=== PATIENT | female | born 1940 | race Caucasian/White ===

== ENCOUNTER 2017-11-24 09:19 | Emergency (ER) | payer MEDICARE, SELFPAY ==
[2017-11-24 10:17] VITALS: BP 118/68; PULSE 77; RESP 16; TEMP 36.8; O2SAT 96; BMI 16.2
--- NOTE | 2017-11-24 10:53 | XR_ITS ---
EXAM: XR cervical spine 5V HISTORY: ITS.REASON: neck pain ORDERING PHYSICIAN: Parris Cancino PATIENT AGE: 77 years COMPARISON: None FINDINGS: There is multilevel cervical spondylosis. Degenerative disc disease C2-C3, C3 C4 C4 C5 C5 C6 and C6-C7 worse at C5-C6 and C6-C7. There is 4 mm anterolisthesis of C3 and 2 to 3 mm anterolisthesis of C4. Facet arthropathy is also noted from C3 to C7. Left-sided foraminal narrowing is present at multiple levels worse at C3-C4 C4-C5 and C6-C7. Right-sided foraminal narrowing also noted at multiple levels worse at C3-C4 C4-C5. No obvious fracture. There is mild head tilt toward the right. IMPRESSION: Cervical spondylosis with degenerative disc disease, subluxation, and facet arthritic change with foraminal narrowing as described above
--- NOTE | 2017-11-24 10:54 | HMH.EDUTC ---
[facility] – [place] Disposition Clinical Impression: Muscle spasms of neck Disposition: Home, Self-Care Condition on Discharge: Good Instructions: DI for Neck Pain, DI for Muscle Spasm Additional Instructions: *Ibuprofen beata 6 hours with meal as needed for pain/inflammation *Not additional anti-inflammatory like motrin, aleve, advil with the above amount of ibuprofen. You can still take Tylenol every 4 hours as needed if you need something else for pain *Ice 20 minutes every 2 hours for the first 48 hours after the initial injury followed by moist heat every 20 minutes 3-4 times a day to affected area *Muscle relaxer every 8 hours as needed for muscle spasms but remember, it WILL cause drowsiness You cannot take it and drive, operate machinery or care for small children. *Keep this area active, no movement leads to more stiffness, However take it easy and avoid heavy lifting pushing or pulling Be really careful as you was prescribed Flexeril which may make you drowsy, you should not drive while taking medication and should have family member stay with you while on medication. Be careful when standing as it may make you dizzy Follow up with family doctor on Tuesday Straight to ER if you began to have life threatening symptoms Wear soft collar that was placed on you in [facility] until seen by family doctor Prescriptions: Cyclobenzaprine HCl [Flexeril 10mg tablet] 5 mg PO Q8HP PRN 30 Days #15 tab PRN Reason: Muscle Spasm Referrals: Best Coelho [Family Provider] - (Follow up with family doctor on Tuesday) Time of Disposition: 11:48 Medical Decision Making - Medical Records Medical records reviewed: Yes: I reviewed the patient's medical records. - Mark Inquiry Pt receiving controlled substance: No Mark was queried for this patient: No Vital Signs: 11/24/17 10:17 11/24/17 11:20 Temperature 98.2 F 98.2 F Temperature Source Temporal Artery Scan Pulse Rate 77 Pulse Rate [Right] 77 Respiratory Rate 16 16 Blood Pressure 118/68 Blood Pressure [Right Arm] 118/68 Blood Pressure Mean [Right Arm] 84 Blood Pressure Source [Right Arm] Automatic Cuff Blood Pressure Position [Right Arm] Sitting 02 Sat by Pulse Oximetry 96 Oxygen Delivery Method Room Air - Radiology Data #1 Image Reviewed: Yes I have reviewed radiologist's interpretation Preliminary Findings: No Fracture Seen Cervical spndylosis with degenerative disc disease. subluxation and facet arthritic change with foraminal narrowing - Reevaluation(s) Time: 11:18 Reevaluation #1: Xray in [facility] to get patient to take her to xray Time: 11:36 Reevaluation #3: Consulted ER physican Dr Finley about patient complaint and treatment options and recommended low dosed flexeril (5mg) for muscle spasm soft collar and follow up with family doctor on Tuesday for further treatment and evaluation [facility] [place] HPI - General Stated complaint: neck pain Time Seen by Provider: 11/24/17 10:30 Mode of Arrival: Ambulatory Source of Information: Patient Limitations: No Limitations Description of Symptoms (Recalled from Triage Doc. by RN): SORE THROAT, STIFF NECK HEENT Symptoms (Recalled from RN notes): Yes Resp Symptoms (Recalled from RN notes): No Skin Symptoms (Recalled from RN notes): No MS Symptoms (Recalled from RN notes): No Functional Status (Recalled from RN notes): N - History of Present Illness Provider Complaint: Patient state that she woke up about 2 mornings ago with stiff neck State that muscles in neck area feel tight and sore State that she did not do anything to hurt her neck and not sure if she may have slept wrong or something State that she moves body when she has to turn her head to the left because it feels so tight State that she did have back problems about 40 years ago. States that she hasn't taken anything over the counter for the pain and this morning it still felt stiff so she came in to get checked out - Related Data Previous Rx's Medication Instruction
--- NOTE | 2017-11-24 10:57 | ED_ITS ---
[facility] [place] Clinical Impression: Muscle spasms of neck Disposition: Home, Self-Care Condition on Discharge: Good Instructions: DI for Neck Pain, DI for Muscle Spasm Additional Instructions: *Ibuprofen beata 6 hours with meal as needed for pain/inflammation *Not additional anti-inflammatory like motrin, aleve, advil with the above amount of ibuprofen. You can still take Tylenol every 4 hours as needed if you need something else for pain *Ice 20 minutes every 2 hours for the first 48 hours after the initial injury followed by moist heat every 20 minutes 3-4 times a day to affected area *Muscle relaxer every 8 hours as needed for muscle spasms but remember, it WILL cause drowsiness You cannot take it and drive, operate machinery or care for small children. *Keep this area active, no movement leads to more stiffness, However take it easy and avoid heavy lifting pushing or pulling Be really careful as you was prescribed Flexeril which may make you drowsy, you should not drive while taking medication and should have family member stay with you while on medication. Be careful when standing as it may make you dizzy Follow up with family doctor on Tuesday Straight to ER if you began to have life threatening symptoms Wear soft collar that was placed on you in [facility] until seen by family doctor Prescriptions: Cyclobenzaprine HCl [Flexeril 10mg tablet] 5 mg PO Q8HP PRN 30 Days #15 tab PRN Reason: Muscle Spasm Referrals: Best Coelho [Family Provider] - (Follow up with family doctor on Tuesday) Time of Disposition: 11:48 Medical Decision Making - Medical Records Medical records reviewed: Yes: I reviewed the patient's medical records. - Mark Inquiry Pt receiving controlled substance: No Mark was queried for this patient: No Vital Signs: 11/24/17 10:17 11/24/17 11:20 Temperature 98.2 F 98.2 F Temperature Source Temporal Artery Scan Pulse Rate 77 Pulse Rate [Right] 77 Respiratory Rate 16 16 Blood Pressure 118/68 Blood Pressure [Right Arm] 118/68 Blood Pressure Mean [Right Arm] 84 Blood Pressure Source [Right Arm] Automatic Cuff Blood Pressure Position [Right Arm] Sitting 02 Sat by Pulse Oximetry 96 Oxygen Delivery Method Room Air - Radiology Data #1 Image Reviewed: Yes I have reviewed radiologist's interpretation Preliminary Findings: No Fracture Seen Cervical spndylosis with degenerative disc disease. subluxation and facet arthritic change with foraminal narrowing - Reevaluation(s) Time: 11:18 Reevaluation #1: Xray in [facility] to get patient to take her to xray Time: 11:36 Reevaluation #3: Consulted ER physican Dr Finley about patient complaint and treatment options and recommended low dosed flexeril (5mg) for muscle spasm soft collar and follow up with family doctor on Tuesday for further treatment and evaluation [facility] [place] - General Stated complaint: neck pain Time Seen by Provider: 11/24/17 10:30 Mode of Arrival: Ambulatory Source of Information: Patient Limitations: No Limitations Description of Symptoms (Recalled from Triage Doc. by RN): SORE THROAT, STIFF NECK HEENT Symptoms (Recalled from RN notes): Yes Resp Symptoms (Recalled from RN notes): No Skin Symptoms (Recalled from RN notes): No MS Symptoms (Recalled from RN notes): No Functional Status (Recalled from RN notes): N - History of Present Illness Provider Complaint: Patient state that she woke up about 2 mornings ago with stiff neck State that bharathi
[2017-11-24 11:20] VITALS: BP 118/68; PULSE 77; RESP 16; TEMP 36.8
== END 2017-11-24 12:01 | disposition home or self-care (01) ==
PROVIDERS: Emergency Provider Nurse Practitioner; Family Provider Internal Medicine
DX: M62.838 Other muscle spasm (principal); M54.2 Cervicalgia
CPT/HCPCS: G0463; 72050; 99201

== ENCOUNTER 2018-01-20 10:30 | Outpatient (RCR) | payer MEDICARE, SELFPAY ==
--- NOTE | 2017-12-05 10:46 | HMH.PTOPEV ---
Rehab Outpatient Evaluation Rehab OP Evaluation Start: 12/05/17 10:35 Freq: Status: Active Protocol: Document 12/05/17 10:35 COURTNEY (Rec: 12/05/17 10:46 COURTNEY [id number]) Electronically Signed By Clinton Quevedo, PT 12/05/17 10:35 Outpatient Therapy Subjective History Subjective History Pt reports lifting/reaching injury occurred on 11/28/17 when purchasing cat litter. Pt reports immediate onset ncek pain with radiating pain into suboccipital area. Pt reports R> L sided neck pain this am, with h/o cervical OA. Chief Complaint Pain Stiff Symptom Type Ache Throb Sharp Dull Stabbing Symptoms Relieved By Heat OTC Meds Prescription Meds Symptoms Aggravated By Physical Activity Lifting Prior Functional Limitations None Current Functional Limitations Reaching Lifting Housework Driving Sleeping Symptom Description Constant but Variable Level of pain today (0-10) 5 Pain scale - at its best (0-10) 4 Pain scale - at its worst (0-10) 8 Cervical Eval Palpation Cervical Muscles R Cervical Paraspinal L Cervical Paraspinal R Suboccipital L Suboccipital R CT Junction L CT Junction R Upper Trapezius L Upper Trapezius Cervical/Thoracic Palpation Findings Tenderness Posture Head/C-Spine Posture Sitting Position Neutral Position Head/C-Spine Posture Standing Position Neutral Position Flexibility Deficits Upper Trapezius Muscle Length (R) Moderate Tightness (L) Moderate Tightness Scalene Group Muscle Length (R) Moderate Tightness (L) Severe Tightness Passive Joint Mobility Cervical PIVM Dec: R C2/3 L C2/3 R C3/4 L C3/4 R C4/5 L C4/5 R C5/6
== END 2018-01-20 10:31 | disposition home or self-care (01) ==
LOC: PT 10:30
PROVIDERS: Family Provider Internal Medicine; Visit Provider Internal Medicine
DX: S16.1XXA Strain of muscle, fascia and tendon at neck level, initial encounter (principal)
CPT/HCPCS: 97010; 97014; 97035; 97110; 97140; G0283

== ENCOUNTER → 2018-06-06 14:36 | Outpatient (POV) | payer MEDICARE, SELFPAY | PROVIDERS: Visit Provider Dermatology | DX: Z00.00 Encounter for general adult medical examination without abnormal findings (principal) ==

== ENCOUNTER → 2018-07-28 10:35 | Outpatient (CLI) | payer MEDICARE, SELFPAY ==
--- NOTE | 2018-07-28 10:59 | NVE_ITS ---
Venous Exam Indications: 729.5 Pain in limb. 782.3 Edema. IMPRESSIONS 1. There is no evidence of significant Reflux. 2. No evidence of deep or superficial vein thrombosis involving the left lower extremity 3. 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 Left lower extremity venous duplex evaluation. Doppler flow study including spectral analysis, color and nichole scale imaging. Location: Vascular laboratory. Patient status: Outpatient. CRITICAL FINDINGS - Reported to: Dr. Rubi - 07/28/2018 - 11:30 am Tables: Venous flow and imaging: + +-------+ + Location Overall Flow properties + +-------+ + Left common femoral Patent Normal phasicity; spontaneous; normal augmentation; compressible + +-------+ + Left saphenofemoral junction Patent Compressible + +-------+ + Left profunda femoral Patent Compressible + +-------+ + Left femoral Patent Normal phasicity; spontaneous; normal augmentation; compressible + +-------+ + Left greater saphenous Patent Normal phasicity; spontaneous; normal augmentation; compressible + +-------+ + Left popliteal Patent Normal phasicity; spontaneous; normal augmentation; compressible + +-------+ + Left posterior tibial Patent Compressible + +-------+ + Left peroneal Patent Compressible + +-------+ + Left gastrocnemius Patent Compressible + +-------+ + Left soleal Patent Compressible + +-------+ + (Report amended ) Electronically signed by: Obed Aguila [id number]
== END ==
PROVIDERS: PCP Internal Medicine; Visit Provider Internal Medicine
DX: M79.605 Pain in left leg (principal)
CPT/HCPCS: 93971

== ENCOUNTER → 2018-12-12 14:34 | Outpatient (POV) | payer MEDICARE, SELFPAY | PROVIDERS: Visit Provider Dermatology | DX: Z00.00 Encounter for general adult medical examination without abnormal findings (principal) ==

== ENCOUNTER → 2018-12-19 14:23 | Outpatient (POV) | payer MEDICARE, SELFPAY | PROVIDERS: Visit Provider Dermatology | DX: Z00.00 Encounter for general adult medical examination without abnormal findings (principal) ==

== ENCOUNTER → 2019-01-24 14:55 | Outpatient (CLI) | payer MEDICARE, SELFPAY | PROVIDERS: PCP Internal Medicine; Visit Provider Internal Medicine | DX: I49.9 Cardiac arrhythmia, unspecified (principal) | CPT/HCPCS: 93005 ==

== ENCOUNTER → 2019-02-12 07:28 | Outpatient (CLI) | payer MEDICARE, SELFPAY ==
--- NOTE | 2019-02-12 07:29 | CA_ITS ---
PROCEDURE: 2-D M-mode and color Doppler study INDICATIONS FOR THE TEST: Chest pain COPD Heart Murmur Tobacco Smoking+ Palpitations+ Fatigue+ Syncope Edema+ Hypertension+Diabetes Mellitus Rheumatic Fever SOB+ELMORE Obesity Hyperlipidemia Family History HD Additional History A-FIB PATIENT INFORMATION HEIGHT: 69 WEIGHT:112 GENDER: Female B/P:125/78 2-D/M-MODE INTERPRETATION: 2-D MEASUREMENTS OBSERVED VALUES IN CMS Right Ventricular Dimension (RVDd) 2.1 Interventricular Septum (Thickness)(IVsd) 0.9 Left Ventricular Internal Dimensions(LVIDd) 3.0 Left Ventricular Posterior Wall (Thickness)(LVPWd) 0.9 Aortic Root 2.0 Aortic Cusp Separation 1.2 Left Atrial Dimensions (LAD) 4.2 2D 1. The left atrium is moderately enlarged, left ventricle is normal size, visually estimated ejection fraction of 55% with no regional wall motion abnormality. 2. The right atrium is markedly enlarged, the right ventricle is moderately dilated with normal contractility. 3. The aortic valve is minimally thickened and fibrosed. 4. The anterior mitral leaflet is elongated, the posterior mitral leaflet is redundant. 5. 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 6. The pulmonic valve is not well visualized 7. No significant pericardial effusion noted. DOPPLER INTERROGATION: 1. The aortic outflow velocities within normal range, there is no aortic stenosis, or aortic insufficiency. 2. The mitral inflow velocities within normal range, there is no mitral stenosis, there is mitral regurgitation present which is likely in severe range. 3. There is severe tricuspid regurgitation noted, likely right ventricular systolic pressure is 44 mmHg, this is consistent with moderate pulmonary hypertension, inferior vena cava is dilated without significant inspiratory collapse. CONCLUSION: 1. Moderately enlarged left atrium, normal left ventricular size, visually estimated ejection fraction 55% with no regional wall motion abnormality. 2. Markedly enlarged right atrium, moderately dilated right ventricle with normal contractility. 3. Abnormal mitral valve as described above associated with severe mitral regurgitation 4. Abnormal tricuspid valve as described above associated with severe tricuspid regurgitation, inferior vena cava is dilated without significant inspiratory collapse. Calculated right ventricular systolic pressure is 44 mmHg. Abnormal tricuspid valve as described above raising the concern is for presen
--- NOTE | 2019-02-12 07:58 | NM_ITS ---
CARDIOLITE SPECT MYOCARDIAL PERFUSION LEXISCAN, REST AND STRESS: History: Hypertension, shortness of breath, palpitations, fatigue and atrial fibrillation. Procedure: Patient received a 0.4 mg of intravenous Lexiscan, resting heart rate was 86 bpm resting blood pressure 122/68, with Lexiscan maximum heart rate achieved was 98 bpm which is less than 85% of the maximum] heart rate and a blood pressure was 106/47. Lexiscan patient complained of shortness of breath Electrocardiogram: Resting echocardiogram showed atrial fibrillation, with Lexiscan less than 1.[address] segment depression noted from the baseline EKG. The EKG portion of the Lexiscan Myoview is nondiagnostic. Cardiac stress and resting SPECT images: Cardiac stress and resting SPECT images were obtained using technetium 99 Myoview 30.5 mCi stress and 10.1 mCi at rest. Gated SPECT further analysis of segmental wall motion and calculation of the ejection fraction also done. Cardiac stress and rest SPECT images show uniform myocardial activity without segmental perfusion abnormality, computer derived ejection fraction is over 65% with no regional wall motion abnormality, right ventricle is normal size and contractility. Conclusion: 1. The EKG portion of the Lexiscan Myoview is nondiagnostic. 2. No scintigraphic evidence of reversible ischemia seen, computer derived ejection fraction is over 65% with no regional wall motion abnormality, right ventricle is normal size and contractility. 3. Normal Lexiscan Myoview study.
--- NOTE | 2019-02-12 10:45 | HMH.ITSHM ---
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 [] metoprolol triam/hctz ibendronate sodium levetirsacetam eliquis amoxocillin
== END ==
PROVIDERS: PCP Internal Medicine; Visit Provider Internal Medicine
DX: I10 Essential (primary) hypertension (principal); I48.91 Unspecified atrial fibrillation; R60.9 Edema, unspecified; Z79.01 Long term (current) use of anticoagulants; R06.02 Shortness of breath
CPT/HCPCS: 78452; 93017; 93306; A9502; J2785

== ENCOUNTER → 2019-03-20 14:52 | Outpatient (POV) | payer MEDICARE, SELFPAY | PROVIDERS: Visit Provider Dermatology | DX: Z00.00 Encounter for general adult medical examination without abnormal findings (principal) ==

== ENCOUNTER → 2019-10-09 14:06 | Outpatient (POV) | payer MEDICARE, SELFPAY | PROVIDERS: Visit Provider Dermatology | DX: Z00.00 Encounter for general adult medical examination without abnormal findings (principal) ==

== ENCOUNTER 2020-10-07 12:18 | Emergency (ER) | payer MEDICARE, SELFPAY ==
[2020-10-07 12:18] VITALS: BP 153/79; PULSE 70; RESP 17; TEMP 36.7; O2SAT 99; BMI 17.1
--- NOTE | 2020-10-07 12:19 | XR_ITS ---
PROCEDURE: XR CHEST PORTABLE CLINICAL HISTORY: chest merchant COMPARISON: No exams were available for comparison FINDINGS: There is mild cardiomegaly without failure. No lobar consolidation or collapse. There is right apical pleural thickening age indeterminate. No acute bony abnormalities. IMPRESSION: Nonspecific right apical pleural thickening which may be due to scarring. Stability may be confirmed with follow-up. Cardiomegaly Dictated by: Obed Aguila MD 10/07/2020 14:29 Obed Aguila MD in [place] 10/07/2020 14:29
--- NOTE | 2020-10-07 12:19 | ECG_ITS ---
APPROVED REPORT Exam: Resting ECG HR:60 bpm ECG Measurements Heart Rate 60 AXES QRSd 74 QRS 20 QT 344 T 268 QTc 344 Conclusion Atrial fibrillation Low voltage QRS ST & T wave abnormality, consider inferior ischemia or digitalis effect ST & T wave abnormality, consider anterolateral ischemia or digitalis effect Abnormal ECG Electronically signed by : Edison Gallo, 10/07/2020 22:02:57
--- NOTE | 2020-10-07 12:22 | HMH.EDCP ---
ED Disposition Clinical Impression: Gastritis Qualifiers: Gastritis type: unspecified gastritis Chronicity: acute Gastritis bleeding: without bleeding Qualified Code(s): K29.00 - Acute gastritis without bleeding Disposition: Home, Self-Care Condition on Discharge: Good Referrals: Best Coelho [Primary Care Provider] - 3 days - Critical Care Critical Care Time: No Attestation: On , the high probability of a clinically significant, sudden or life threatening deterioration of the following system(s) required my full and direct attention, intervention and personal management. The time I documented below is in addition to time spent performing reported procedures but includes the following listed in this critical care notation. Medical Decision Making - Medical Records Medical records reviewed: Yes: I reviewed the patient's medical records. - Mark Inquiry Pt receiving controlled substance: No Vital Signs: 10/07/20 12:18 10/07/20 13:33 10/07/20 14:05 Temperature 98.1 F Temperature Source Oral Pulse Rate [Right] 70 60 60 Respiratory Rate 17 18 16 Blood Pressure [Right Arm] 153/79 H 143/65 H 145/70 H Blood Pressure Mean [Right Arm] 103 91 95 Blood Pressure Source [Right Arm] Automatic Cuff Blood Pressure Position [Right Arm] Sitting Sitting 02 Sat by Pulse Oximetry 99 95 94 L Oxygen Delivery Method Room Air Room Air 10/07/20 14:36 Temperature Temperature Source Pulse Rate [Right] 61 Respiratory Rate 16 Blood Pressure [Right Arm] 135/66 Blood Pressure Mean [Right Arm] 89 Blood Pressure Source [Right Arm] Blood Pressure Position [Right Arm] 02 Sat by Pulse Oximetry 94 L Oxygen Delivery Method - Lab Data Lab Results 10/07/20 12:25: WBC 9.8, RBC 4.69, Hgb 14.6, Hct 45.7, MCV 97.5, MCH 31.1, MCHC 31.8, RDW 13.8, Plt Count 204, MPV 8.7, Neut % (Auto) 79.0, Lymph % (Auto) 14.3, Burt % (Auto) 4.6, Eos % (Auto) 1.5, Baso % (Auto) 0.5, Neut # (Auto) 7.8, Lymph # (Auto) 1.4, Burt # (Auto) 0.5, Eos # (Auto) 0.2, Baso # (Auto) 0.1 10/07/20 12:25: PT 13.6 H, INR 1.25 H 10/07/20 12:25: Sodium 137, Potassium 4.2, Chloride 99, Carbon Dioxide 32 H, Anion Gap 10.2, BUN 31 H, Creatinine 1.00, Estimated Creat Clear 36, Estimated GFR 53 L, Est GFR ( Amer) 64, Glucose 94, Calcium 10.6 H, Troponin I 0.02 10/07/20 12:25: Digoxin 1.30 10/07/20 14:15: Troponin I 0.02 Result diagrams: 10/07/20 12:25 10/07/20 12:25 Orders (Tests/Meds): ED MEDICATIONS Generic Name Dose Route Start Last Admin Trade Name Freq PRN Reason Stop Dose Admin Nitroglycerin 0.4 mg 10/07/20 12:19 Nitroglycerin 0.4mg Sl Tablet SL 10/08/20 12:19 [id number] PRN Chest Pain Discontinued Medications Generic Name Dose Route Start Last Admin Trade Name Freq PRN Reason Stop Dose Admin Aspirin 324 mg 10/07/20 12:19 10/07/20 12:35 Aspirin 81mg Chewable Tablet PO 10/07/20 12:20 324 mg ONCE ONE Administration Belladonna Alkaloids 60 ml 10/07/20 13:06 10/07/20 13:25 Gi Cocktail 60ml Udc PO 10/07/20 13:07 60 ml ONCE ONE Administration ORDERS Category Date Time Status Troponin I Q3H Lab 10/07/20 18:30 Ordered - Radiology Data #1 Image(s): Chest Image Reviewed: Yes I reviewed the patient's radiology image Cardiomegaly otherwise no acute finding - ECG Data Tracing #1 A. fib, 60 bpm, no ST elevation or depression. ECG initial impression date: 10/07/20 ECG initial impression time: 12:20 Arrhythmias present: afib/aflutter Medical Decision Narrative: 80yo F evaluated for epigastric and substernal pain. Differential diagnosis includes was not limited to: ACS/CA, pneumonia, PE, GERD, cholecystitis, pneumothorax, costochondritis, pericarditis. Patient is in no acute distress on initial evaluation. Her vital signs are unremarkable. She denies any significant pain at this time. Patient received full-strength aspirin on arrival. We will treat her with a GI cocktail as her sy
[2020-10-07 12:41] LABS: Basophils # 0.1 K/mm3 (0-0.2); Basophils % 0.5 % (0.1-2.0); Eosinophils # 0.2 K/mm3 (0.0-0.4); Eosinophils % 1.5 % (0.1-12.0); Hematocrit 45.7 % (37.0-47.0); Hemoglobin 14.6 g/dL (12.2-16.2); Lymphocytes # 1.4 K/mm3 (0.7-4.5); Lymphocytes % 14.3 % (10-50); Mean Corpuscular HGB Conc 31.8 g/dL (31.8-35.4); Mean Corpuscular Hemoglobin 31.1 pg (27.0-31.2); Mean Corpuscular Volume 97.5 fl (81-99); Mean Platelet Volume 8.7 fl (7.4-10.4); Monocytes # 0.5 K/mm3 (0.1-1.0); Monocytes % 4.6 % (1.7-9.3); Neutrophils # 7.8 K/mm3 (1.8-7.8); Platelet Count 204 K/mm3 (142-424); Red Blood Count 4.69 M/mm3 (4.20-5.40); Red Cell Distribution Width 13.8 % (11.5-17.5); White Blood Count 9.8 K/mm3 (4.8-10.8)
[2020-10-07 12:44] LABS: Chloride 99 mmol/L (98-107); Potassium 4.2 mmoL/L (3.5-5.1); Sodium 137 mmol/L (136-145)
[2020-10-07 12:47] LABS: Blood Urea Nitrogen 31 mg/dl (7-17); Creatinine Clearance Estimated 36 mL/min (50-200); Estimated Glomerular Filt Rate 53 ml/min (>60); GFR (African American) 64 ML/MIN (>60)
[2020-10-07 12:48] LABS: Anion Gap 10.2 mEq/L (5-15); Calcium 10.6 mg/dl (8.4-10.2); Carbon Dioxide 32 mmol/L (22.0-30.0); Glucose 94 mg/dl (74-100)
[2020-10-07 12:51] LABS: INR 1.25 (0.9-1.1); Prothrombin Time 13.6 seconds (9.4-11.8)
[2020-10-07 13:00] LABS: Troponin I 0.02 ng/ml (0.00-0.034)
[2020-10-07 13:33] VITALS: BP 143/65; PULSE 60; RESP 18; O2SAT 95
[2020-10-07 14:05] VITALS: BP 145/70; PULSE 60; RESP 16; O2SAT 94
[2020-10-07 14:36] VITALS: BP 135/66; PULSE 61; RESP 16; O2SAT 94
[2020-10-07 15:07] LABS: Troponin I 0.02 ng/ml (0.00-0.034)
[2020-10-07 15:23] VITALS: BP 134/76; PULSE 63; RESP 18; TEMP 36.7; O2SAT 97
== END 2020-10-07 15:25 | disposition home or self-care (01) ==
PROVIDERS: Emergency Provider Family Medicine; PCP Internal Medicine
DX: K29.00 Acute gastritis without bleeding (principal); K21.9 Gastro-esophageal reflux disease without esophagitis; I10 Essential (primary) hypertension; I48.20 Chronic atrial fibrillation, unspecified; Z87.891 Personal history of nicotine dependence; Z79.899 Other long term (current) drug therapy
CPT/HCPCS: 71045; 80048; 80162; 84484; 85025; 85610; 93005; 99283

== ENCOUNTER → 2020-12-19 13:53 | Outpatient (CLI) | payer MEDICARE, SELFPAY ==
--- NOTE | 2020-12-19 13:54 | CA_ITS ---
APPROVED REPORT EXAM: Comprehensive 2D, Doppler, and color-flow Echocardiogram Assembly Leader: Nbaila Bowman RT(R) Ht: 5 ft 9 in Wt: 114lbs BSA: 1.63 BP: 132/84 mmHg Indications: SOB, AFIB, HTN, edema, bradycardia, arrhythmia noted on echo 2D Dimensions LVOT 1.82 cm (M/F) 1.5-2.5 LA Volume 56.10 mL LA Volume Index 34.62 mL/m2 (M/F) 16-34 M-Mode Dimensions RVDd 3.28 cm (0.9-2.6) LA Diam 3.95 cm (1.9-4.0) LVDd 3.03 cm (3.5-5.7) Ao Diam 1.87 cm (2.0-3.7) LVDs 2.31 cm (3.5-5.7) IVSd 0.91 cm (0.6-1.1) PWd 0.97 cm (0.6-1.1) EF (Teich) 49.00% FS 23.80% EDV (Teich) 35.90 mL TAPSE 1.21 (<1.7) ESV (Teich) 18.30 mL Left Ventricle Left atrium is moderately enlarged, left ventricle is normal size, mild concentric left ventricular hypertrophy, visually estimated ejection fraction 55%, there is flattening of the interventricular septum during systole and diastole raising the concerns for presence of volume and pressure overload on right ventricle. Diastolic parameters are inconclusive. Right Ventricle Right atrium and right ventricle moderately enlarged, contractility of the right ventricle is normal. Aortic Valve Aortic valve is thickened and calcified without Doppler evidence of aortic stenosis or aortic insufficiency. Mitral Valve Mitral valve leaflets are minimally thickened, there is mild mitral regurgitation. Tricuspid Valve Tricuspid valve is minimally thickened, there is moderate to severe tricuspid regurgitation, tricuspid regurgitation jet velocity is inadequate for calculation of the right ventricular systolic pressure. Pulmonic Valve Pulmonic valve is poorly visualized. Great Vessels Aortic root is normal size. Pericardium No significant pericardial effusion noted. Conclusion 1. Moderate biatrial Allmond, normal left ventricular size, mild concentric left ventricular hypertrophy, visually estimated ejection fraction 55% with no regional wall motion abnormality, there is flattening of the intraventricular septum during systole and diastole consistent with pressure and volume overload on right ventricle. 2. Thickened and calcified aortic valve without aortic stenosis or aortic insufficiency. 3. Moderately enlarged right ventricle with normal contractility. 4. Mild mitral and moderate to severe tricuspid regurgitation. 5. No significant pericardial effusion noted. Electronically signed by : Roger Pichardo, 12/22/2020 09:38:23
== END ==
PROVIDERS: PCP Internal Medicine; Visit Provider Nurse Practitioner Family
DX: I10 Essential (primary) hypertension (principal); R00.1 Bradycardia, unspecified; R06.00 Dyspnea, unspecified; R60.0 Localized edema; Z79.01 Long term (current) use of anticoagulants; Z87.891 Personal history of nicotine dependence; I48.20 Chronic atrial fibrillation, unspecified; Z51.81 Encounter for therapeutic drug level monitoring
CPT/HCPCS: 93306

== ENCOUNTER → 2021-01-06 13:44 | Outpatient (POV) | payer MEDICARE, SELFPAY | PROVIDERS: Visit Provider Dermatology | DX: Z00.00 Encounter for general adult medical examination without abnormal findings (principal) ==

== ENCOUNTER → 2021-01-27 14:01 | Outpatient (POV) | payer MEDICARE, SELFPAY | PROVIDERS: Visit Provider Dermatology | DX: Z00.00 Encounter for general adult medical examination without abnormal findings (principal) ==

== ENCOUNTER → 2021-06-19 17:13 | Outpatient (CLI) | payer MEDICARE, SELFPAY ==
[2021-06-19 18:07] LABS: Basophils % 0.6 % (0.1-2.0); Eosinophils # 0.1 K/mm3 (0.0-0.4); Eosinophils % 1.2 % (0.1-12.0); Hematocrit 41.7 % (37.0-47.0); Lymphocytes # 1.3 K/mm3 (0.7-4.5); Lymphocytes % 19.4 % (10-50); Mean Corpuscular HGB Conc 31.2 g/dL (31.8-35.4); Mean Corpuscular Hemoglobin 31.9 pg (27.0-31.2); Mean Corpuscular Volume 102.2 fl (81-99); Mean Platelet Volume 11.1 fl (7.4-10.4); Monocytes # 0.3 K/mm3 (0.1-1.0); Monocytes % 4.7 % (1.7-9.3); Platelet Count 262 K/mm3 (142-424); Red Blood Count 4.08 M/mm3 (4.20-5.40); Red Cell Distribution Width 13.7 % (11.5-17.5); White Blood Count 6.7 K/mm3 (4.8-10.8)
[2021-06-19 19:46] LABS: Alanine Aminotransferase 18 U/L (12-78); Albumin Level 4.2 g/dl (3.5-5.0); Albumin/Globulin Ratio 1.4 (1.1-1.8); Alkaline Phosphatase 88 U/L (38-126); Anion Gap 15.6 mEq/L (5-15); Aspartate Amino Transferase 55 U/L (14-36); Bilirubin,Total 0.9 mg/dl (0.2-1.3); Blood Urea Nitrogen 28 mg/dl (7-17); Calcium 9.7 mg/dl (8.4-10.2); Carbon Dioxide 26 mmol/L (22.0-30.0); Chloride 102 mmol/L (98-107); Chol/HDL Ratio 1.9 (1-3.5); Cholesterol 157 mg/dl (140-200); Estimated Glomerular Filt Rate 60 ml/min (>60); GFR (African American) 73 ML/MIN (>60); Globulin 3.1 g/dL (1.3-3.2); Glucose 58 mg/dl (74-100); HDL Cholesterol 82 mg/dl (40-60); Potassium 5.6 mmoL/L (3.5-5.1); Sodium 138 mmol/L (136-145); Total Protein,Serum 7.3 g/dl (6.3-8.2); Triglycerides 60 mg/dl (30-150); VLDL Cholesterol 12 mg/dL (0-40)
[2021-06-19 19:57] LABS: Direct LDL Cholesterol 61.76 mg/dL (100-129)
[2021-06-19 20:39] LABS: 25-OH Vitamin D, Total 59.2 ng/mL (30-100)
== END ==
PROVIDERS: Visit Provider Internal Medicine
DX: I48.91 Unspecified atrial fibrillation (principal); I87.2 Venous insufficiency (chronic) (peripheral); I10 Essential (primary) hypertension; E78.5 Hyperlipidemia, unspecified; G40.909 Epilepsy, unspecified, not intractable, without status epilepticus; M15.0 Primary generalized (osteo)arthritis; M81.0 Age-related osteoporosis without current pathological fracture
CPT/HCPCS: 80053; 80061; 82306; 85025

== ENCOUNTER → 2021-06-30 11:48 | Outpatient (CLI) | payer MEDICARE, SELFPAY ==
[2021-06-30 13:58] LABS: Reticulocyte % (Auto) 1.6 % (0.9-3.2)
[2021-06-30 15:26] LABS: Vitamin B12 721 pg/mL (239-931)
[2021-06-30 15:46] LABS: Folate > 20.00 ng/mL
== END ==
PROVIDERS: Visit Provider Internal Medicine
DX: R71.8 Other abnormality of red blood cells (principal)
CPT/HCPCS: 82533; 82607; 82746; 85044

== ENCOUNTER → 2021-10-19 12:02 | Outpatient (CLI) | payer MEDICARE, SELFPAY ==
[2021-10-19 12:50] LABS: Basophils % 0.5 % (0.1-2.0); Eosinophils # 0.1 K/mm3 (0.0-0.4); Hematocrit 42.2 % (37.0-47.0); Hemoglobin 13.2 g/dL (12.2-16.2); Lymphocytes # 1.3 K/mm3 (0.7-4.5); Lymphocytes % 20.6 % (10-50); Mean Corpuscular HGB Conc 31.3 g/dL (31.8-35.4); Mean Corpuscular Hemoglobin 30.5 pg (27.0-31.2); Mean Corpuscular Volume 97.6 fl (81-99); Mean Platelet Volume 8.7 fl (7.4-10.4); Monocytes # 0.3 K/mm3 (0.1-1.0); Neutrophils # 4.8 K/mm3 (1.8-7.8); Neutrophils % 72.9 % (37.0-80.0); Platelet Count 222 K/mm3 (142-424); Red Blood Count 4.33 M/mm3 (4.20-5.40); Red Cell Distribution Width 13.2 % (11.5-17.5); White Blood Count 6.5 K/mm3 (4.8-10.8)
[2021-10-19 13:11] LABS: Chloride 99 mmol/L (98-107); Potassium 4.7 mmoL/L (3.5-5.1); Sodium 134 mmol/L (136-145)
[2021-10-19 13:13] LABS: Alanine Aminotransferase 18 U/L (12-78); Aspartate Amino Transferase 46 U/L (14-36); Blood Urea Nitrogen 30 mg/dl (7-17); Estimated Glomerular Filt Rate 47 ml/min (>60); GFR (African American) 57 ML/MIN (>60)
[2021-10-19 13:14] LABS: Albumin Level 4.1 g/dl (3.5-5.0); Albumin/Globulin Ratio 1.5 (1.1-1.8); Alkaline Phosphatase 84 U/L (38-126); Anion Gap 7.7 mEq/L (5-15); Bilirubin,Total 1.1 mg/dl (0.2-1.3); Carbon Dioxide 32 mmol/L (22.0-30.0); Globulin 2.7 g/dL (1.3-3.2); Glucose 85 mg/dl (74-100); Total Protein,Serum 6.8 g/dl (6.3-8.2)
[2021-10-19 13:44] LABS: Thyroid Stimulating Hormone 4.81 uIU/mL (0.465-4.68)
== END ==
PROVIDERS: Visit Provider Internal Medicine
DX: I10 Essential (primary) hypertension (principal); G40.909 Epilepsy, unspecified, not intractable, without status epilepticus; E16.2 Hypoglycemia, unspecified; I87.2 Venous insufficiency (chronic) (peripheral); M15.0 Primary generalized (osteo)arthritis
CPT/HCPCS: 80053; 84439; 84443; 85025

== ENCOUNTER → 2021-12-15 13:05 | Outpatient (CLI) | payer MEDICARE, SELFPAY ==
--- NOTE | 2021-12-15 13:05 | CA_ITS ---
APPROVED REPORT EXAM: Comprehensive 2D, Doppler, and color-flow Echocardiogram Hospital Product Specialist: Ruthie Cee CRT Ht: 5 ft 9 in Wt: 108lbs BSA: 1.59 BP: 122/55 mmHg Indications: Shortness of Breath, Atrial Fibrillation (chronic), Hypertension/HDD, mod MR, severe TR, ex smoker 2D Dimensions LVOT 1.80 cm (M/F) 1.5-2.5 LA Volume 45.80 mL LA Volume Index 28.80 mL/m2 (M/F) 16-34 M-Mode Dimensions RVDd 3.72 cm (0.9-2.6) LA Diam 4.27 cm (1.9-4.0) LVDd 2.59 cm (3.5-5.7) Ao Diam 3.33 cm (2.0-3.7) LVDs 1.47 cm (3.5-5.7) IVSd 1.15 cm (0.6-1.1) PWd 0.88 cm (0.6-1.1) EF (Teich) 76.60% FS 43.20% EDV (Teich) 24.40 mL TAPSE 1.49 (<1.7) ESV (Teich) 5.70 mL LV Diastology E Decel Time 160.00 (160-240 msec) E/A Ratio 3.83 Aortic Valve AO Peak GR. 10.80 mmHg Mitral Valve MV E Max Luis Manuel. 86.00 (40-130 cm/s) MV A Velocity 22.00 (40-130 cm/s) E/A Ratio 3.83 MV Decel. Time 160.00 (160-240 ms) MV PHT 47.00 ms Pulmonary Valve PV Peak Velocity 158.00 (50-150 cm/s) Tricuspid Valve TR P. Velocity 230.00 cm/s RAP Estimate 10.00 mmHg RVSP 31.20 mmHg Left Ventricle Left atrium is mildly enlarged, left ventricle is normal size, mild concentric left ventricular hypertrophy, estimated ejection fraction 55%, there is flattening of the interventricular septum during systole and diastole consistent with pressure and volume overload on right ventricle. Diastolic parameters are inconclusive. Right Ventricle Right atrium is markedly enlarged, right ventricle is moderately dilated with normal contractility. Aortic Valve Aortic valve is thickened and calcified without Doppler evidence of aortic stenosis or aortic insufficiency. Mitral Valve Mitral valve leaflets are minimally thickened, there is mild to moderate mitral regurgitation. Tricuspid Valve Tricuspid valve leaflets are minimally thickened, there appears to be failure of coaptation of the tricuspid valve leaflets, there is severe tricuspid regurgitation, calculated right ventricular systolic pressure 29 mmHg, tricuspid regurgitation jet envelope V shaped contour raising the concern for markedly elevated right atrial pressure. Pulmonic Valve Pulmonic valve is poorly visualized. Great Vessels Aortic root is normal size. Inferior vena cava is poorly visualized. Pericardium Trivial pericardial effusion noted Conclusion 1. Biatrial enlargement as described above, normal left ventricular size, estimated ejection fraction 55%, there is flattening of the interventricular septum during systole and diastole consistent with pressure and volume overload on right ventricle. Diastolic parameters are inconclusive. 2. Moderately enlarged right ventricle with normal contractility. 3. Mild to moderate mitral and severe tricuspid regurgitation as described above. 4. Trivial pericardial effusion. 5. Inferior vena cava is poorly visualized. Electronically signed by : Roger Pichardo MD 12/16/2021 05:52:40
== END ==
PROVIDERS: PCP Internal Medicine; Visit Provider Internal Medicine
DX: I07.1 Rheumatic tricuspid insufficiency (principal); I10 Essential (primary) hypertension; I34.0 Nonrheumatic mitral (valve) insufficiency; R06.02 Shortness of breath; R94.31 Abnormal electrocardiogram [ECG] [EKG]; Z79.01 Long term (current) use of anticoagulants; Z87.891 Personal history of nicotine dependence; I48.20 Chronic atrial fibrillation, unspecified
CPT/HCPCS: 93306

== ENCOUNTER → 2022-02-15 12:35 | Outpatient (CLI) | payer MEDICARE, SELFPAY ==
[2022-02-15 14:02] LABS: Chloride 99 mmol/L (98-107); Potassium 4.7 mmoL/L (3.5-5.1); Sodium 136 mmol/L (136-145)
[2022-02-15 14:04] LABS: Blood Urea Nitrogen 34 mg/dl (7-17); Estimated Glomerular Filt Rate 47 ml/min (>60); GFR (African American) 57 ML/MIN (>60)
[2022-02-15 14:05] LABS: Alanine Aminotransferase 20 U/L (12-78); Albumin Level 3.9 g/dl (3.5-5.0); Albumin/Globulin Ratio 1.3 (1.1-1.8); Alkaline Phosphatase 86 U/L (38-126); Anion Gap 9.7 mEq/L (5-15); Aspartate Amino Transferase 48 U/L (14-36); Bilirubin,Total 0.7 mg/dl (0.2-1.3); Carbon Dioxide 32 mmol/L (22.0-30.0); Globulin 2.9 g/dL (1.3-3.2); Total Protein,Serum 6.8 g/dl (6.3-8.2)
[2022-02-15 14:06] LABS: Calcium 9.8 mg/dl (8.4-10.2); Glucose 91 mg/dl (74-100)
== END ==
PROVIDERS: PCP Internal Medicine; Visit Provider Internal Medicine
DX: I10 Essential (primary) hypertension (principal); I48.91 Unspecified atrial fibrillation; G40.909 Epilepsy, unspecified, not intractable, without status epilepticus; I87.2 Venous insufficiency (chronic) (peripheral); M15.0 Primary generalized (osteo)arthritis
CPT/HCPCS: 80053

== ENCOUNTER → 2022-03-04 07:56 | Outpatient (CLI) | payer MEDICARE, SELFPAY ==
--- NOTE | 2022-03-04 08:01 | US_ITS ---
FINAL REPORT CLINICAL HISTORY: ABN ELEVATED LIVER ENZYMES,FATIGUE,ELEVATED CREATINE,EDEMA FINDINGS: US ABDOMINAL COMPLETE Sonographic images of the abdomen were obtained. The liver has an unremarkable appearance with normal echogenicity. There is sludge within the gallbladder without evidence of gallstones. The gallbladder has a Phrygian cap. There is no evidence of biliary ductal dilatation. The common hepatic duct measures 2 mm, which is within normal limits. Limited images of the pancreas are unremarkable. The spleen size is normal. There is a 7 mm hyperechoic nodule which is nonspecific and could represent a hemangioma. The right kidney measures 7.9 cm in length. The left kidney measures 10.3 in length. There is normal renal echogenicity. The right kidney is small which could be due to renal artery stenosis or chronic pyelonephritis. There is no evidence of hydronephrosis. The aorta has an unremarkable appearance. Limited images of the inferior vena cava are unremarkable. IMPRESSION: 7 mm hyperechoic nodule in the spleen, nonspecific and could represent hemangioma. Small right kidney could be due to renal artery stenosis or chronic pyelonephritis. Gallbladder sludge without evidence of gallstones. Reviewed, Interpreted and Dictated by Alexi Poole III, MD Transcribed by Flori Michael Authenticated and [facility]
--- NOTE | 2022-03-04 08:02 | US_ITS ---
FINAL REPORT CLINICAL HISTORY: ABN ELEVATED LIVER ENZYMES,FATIGUE,ELEVATED CREATINE,EDEMA FINDINGS: Sonographic images were obtained of the bladder. Prevoid bladder measurements are as follows: 8.0 x 6.8 x 6.1 cm with volume of 172 ml. Postvoid bladder measurements are as follows: 3.4 x 0.8 x 1.7 cm with volume of 2.5 ml. Bilateral ureteral jets are noted. IMPRESSION: No significant post void residual. Reviewed, Interpreted and Dictated by Alexi Poole III, MD Transcribed by Flori Michael Authenticated and [facility]
== END ==
PROVIDERS: PCP Internal Medicine; Visit Provider Internal Medicine
DX: R74.8 Abnormal levels of other serum enzymes (principal); R94.5 Abnormal results of liver function studies; R53.83 Other fatigue; R60.0 Localized edema
CPT/HCPCS: 76700; 76857

== ENCOUNTER → 2022-03-11 11:44 | Outpatient (CLI) | payer MEDICARE, SELFPAY ==
[2022-03-11 12:38] LABS: Iron 102 ug/dL (37-170)
[2022-03-11 12:47] LABS: Total Iron Binding Capacity 319 ug/dL (265-497)
[2022-03-11 13:14] LABS: Ferritin 42.1 ng/ml (11.1-264)
[2022-03-12 08:15] LABS: Hep B Core Ab, Total Negative (Negative); Hep B Surface Ab, Qual Non Reactive (.); Hepatitis C Antibody 0.1 s/co ratio (0.0-0.9)
[2022-03-12 14:11] LABS: Mitochondrial (M2) Antibody <20.0 Units (0.0-20.0)
[2022-03-14 19:08] LABS: Antinuclear Antibodies, IFA Negative (.)
== END ==
PROVIDERS: PCP Internal Medicine; Visit Provider Internal Medicine
DX: R94.5 Abnormal results of liver function studies (principal); R53.83 Other fatigue; R94.4 Abnormal results of kidney function studies; R60.0 Localized edema; R74.8 Abnormal levels of other serum enzymes; Z01.84 Encounter for antibody response examination
CPT/HCPCS: 36415; 82728; 83540; 83550; 86038; 86256; 86704; 86706; 87380

== ENCOUNTER → 2022-06-08 11:24 | Outpatient (CLI) | payer MEDICARE, SELFPAY ==
--- NOTE | 2022-06-08 11:28 | XR_ITS ---
FINAL REPORT CLINICAL HISTORY: rhonchi on exam. COMPARISON: October 07, 2020 FINDINGS: Two views of the chest were obtained. Cardiomegaly is noted. The mediastinum is normal. There is bilateral scarring and apical pleural thickening. There is mild right perihilar atelectasis or scarring. There is no pneumothorax. There are mild and moderate degenerative changes of the thoracic spine. IMPRESSION: Mild right perihilar atelectasis or scarring. Reviewed, Interpreted and Dictated by Alexi Poole III, MD Transcribed by Mikie Ramos Authenticated and [facility]
== END ==
PROVIDERS: PCP Internal Medicine; Visit Provider Physician Assistant
DX: I07.1 Rheumatic tricuspid insufficiency (principal); I10 Essential (primary) hypertension; I34.0 Nonrheumatic mitral (valve) insufficiency; R00.1 Bradycardia, unspecified; R06.02 Shortness of breath; R09.89 Other specified symptoms and signs involving the circulatory and respiratory systems; Z79.01 Long term (current) use of anticoagulants; I48.20 Chronic atrial fibrillation, unspecified; Z51.81 Encounter for therapeutic drug level monitoring
CPT/HCPCS: 71046

== ENCOUNTER 2022-07-21 13:15 | Emergency (ER) | payer MEDICARE, SELFPAY ==
[2022-07-21 13:50] VITALS: BP 116/60; PULSE 71; RESP 18; TEMP 37.3; O2SAT 95; BMI 14.4
--- NOTE | 2022-07-21 13:57 | EXP.UTC ---
Discharge Plan Disposition Patient Disposition: Home, Self-Care Condition: Good Prescriptions Prescriptions: New clindamycin HCl 300 mg capsule 300 mg PO Q8H Qty: 30 0RF mupirocin 2 % ointment 1 applic topical TID 7 Days Qty: 22 2RF No Action furosemide [Lasix] 20 mg tablet 50 mg PO DAILY PRN ICaps [id number] aomx-ec-wr-unit tablet extended release 2 tab PO DAILY metoprolol succinate 100 mg tablet extended release 24 hr See Rx Instructions .ROUTE .COMPLEX Qty: 60 3RF Dose Instruction: TAKE ONE TABLET BY MOUTH TWICE A DAY Rx Instructions: TAKE ONE TABLET BY MOUTH TWICE A DAY Eliquis 2.5 mg tablet See Rx Instructions .ROUTE .COMPLEX Qty: 60 4RF Dose Instruction: TAKE ONE TABLET BY MOUTH TWICE A DAY Rx Instructions: TAKE ONE TABLET BY MOUTH TWICE A DAY digoxin 125 mcg (0.125 mg) tablet See Rx Instructions .ROUTE .COMPLEX Qty: 90 0RF Dose Instruction: TAKE 1 TABLET BY MOUTH ONCE DAILY Rx Instructions: TAKE 1 TABLET BY MOUTH ONCE DAILY levetiracetam 500 MG tablet 500 mg PO BID ibandronate 150 MG tablet 150 mg PO MONTHLY triamterene-hydrochlorothiazid 75-50 mg tablet 1 tab PO DAILY Referrals Follow up/Referrals: Best Coelho MD [Primary Care Provider] - See instructions Activity Restrictions/Add. Instructions Additional Instructions/Restrictions: Drink plenty of fluids. Take tylenol for pain or fever. Take the medications as directed. Follow up with your regular doctor. GO TO THE ER FOR ANY WORSENING SYMPTOMS Clinical Impressions Clinical Impression: Bilateral lower leg cellulitis Instructions Patient Instructions: Cellulitis, Clindamycin, Mupirocin Discharge ED Provider: Janes Jacobsen [facility] General Stated complaint: Bleeding sores on both legs Mode of Arrival: Ambulatory Source of Information: Patient Limitations: No Limitations Time Seen by Provider: 07/21/22 13:57 Description of Symptoms (Recalled from Triage Doc. by RN): c/o bilateral redness and some sores. States she has been on an antibiotic for this and it cleared up but has returned a few days ago History of Present Illness Provider Complaint: She states that she has redness and swelling of both her lower legs. She has a history of having similar issues. She states that she has to take antibiotics and it gets better. She is currently on amoxicillin for a dental abscess, but she states the amoxicillin she is taking is not helping her legs. She denies any fever or chills. Related Data Home Medications Medication Instructions Recorded Confirmed ibandronate 150 mg tablet 150 mg PO MONTHLY osteopenia 06/06/18 06/08/22 levetiracetam 500 mg tablet 500 mg PO BID seizures 06/06/18 06/08/22 [id number]-min 2 tab PO DAILY . 01/30/19 06/08/22 3,300 unit-5 mg-200mg-75 unit tablet ER (ICaps) furosemide 20 mg tablet (Lasix) 50 mg PO DAILY PRN 12/08/20 06/08/22 triamterene 75 1 tab PO DAILY blood pressure 06/08/21 06/08/22 mg-hydrochlorothiazide 50 mg tablet Previous Rx's Medication Instructions Recorded apixaban 2.5 mg tablet (Eliquis) See Rx Instructions .Route 03/29/22 .COMPLEX #60 tabs metoprolol succinate 100 mg See Rx Instructions .Route 03/29/22 tablet,extended release 24 hr .COMPLEX #60 tabs digoxin 125 mcg (0.125 mg) tablet See Rx Instructions .Route 05/04/22 .COMPLEX #90 tabs clindamycin HCl 300 mg capsule 300 mg PO Q8H #30 caps 07/21/22 mupirocin 2 % topical ointment 1 applic topical TID 7 days #22 07/21/22 grams Allergies Allergy/AdvReac Type Severity Reaction Status Date / Time cephalexin [From Keflex] Allergy Verified 07/21/22 14:04 [facility] Medical History Abnormal EKG Bradycardia Edema HTN (hypertension) custodial current use of anticoagulant therapy Moderate mitral regurgitation Tricuspid regurgitation Social [facility]
[2022-07-21 14:03] VITALS: BP 116/60; PULSE 71; RESP 18; TEMP 37.3; O2SAT 95; BMI 14.5
[2022-07-21 14:46] VITALS: BP 116/60; PULSE 71; RESP 18; TEMP 37.3
== END 2022-07-21 14:47 | disposition home or self-care (01) ==
PROVIDERS: Emergency Provider Nurse Practitioner Family; PCP Internal Medicine
DX: L03.116 Cellulitis of left lower limb (principal)
CPT/HCPCS: 87070; 87205; 99212; G0463

== ENCOUNTER → 2022-07-30 10:48 | Outpatient (CLI) | payer MEDICARE, SELFPAY ==
--- NOTE | 2022-07-30 10:51 | CT_ITS ---
FINAL REPORT CLINICAL HISTORY: COUGH,SCARRING ON PREV CXR FINDINGS: Axial images were obtained from the lung apex to the mid abdomen by computed tomography. Coronal reformatted images were obtained. This study was performed with techniques to keep radiation doses as low as reasonably achievable, (ALARA). Individualized dose reduction techniques using automated exposure control or adjustment of mA and/or kV according to the patient's size were employed. There is no axillary adenopathy. There is no hilar or mediastinal adenopathy. Heart size is normal. There is no pericardial or pleural effusion. Limited images of the upper abdomen are unremarkable. There is asymmetric pleural thickening in the right lung apex measuring 1 cm in thickness. There are a multitude of noncalcified densities in both lungs larger and more numerous on the right than left. In the right lung is a 12 mm nodule on image 31. A 7 mm right lung nodule seen on image 65. A 5 mm nodule is seen in the right lung on image 71. There is abnormal parabronchial thickening bilaterally. IMPRESSION: Multiple bilateral pulmonary nodules with associated peribronchial thickening could be inflammatory or neoplastic. Recommend 3 month follow-up CT or PET-CT based on clinical history. Reviewed, Interpreted and Dictated by Casa Norris MD Transcribed by Mikie Ramos Authenticated and [facility]
== END ==
PROVIDERS: PCP Internal Medicine; Visit Provider Internal Medicine
DX: R05.9 Cough, unspecified (principal); R93.89 Abnormal findings on diagnostic imaging of other specified body structures
CPT/HCPCS: 71250

== ENCOUNTER → 2022-08-04 15:42 | Outpatient (CLI) | payer MEDICARE, SELFPAY ==
[2022-08-06 22:45] LABS: QuantiFERON-TB Gold Plus Negative (Negative)
[2022-08-10 20:55] LABS: Aspergillus flavus Negative (Neg:<1:1); Aspergillus fumigatus Negative (Neg:<1:1); Aspergillus niger Negative (Neg:<1:1); Blastomyces Antibody Negative (Neg:<1:1)
== END ==
PROVIDERS: PCP Internal Medicine; Visit Provider Internal Medicine
DX: R91.8 Other nonspecific abnormal finding of lung field (principal)
CPT/HCPCS: 36415; 86480; 86606; 86612

== ENCOUNTER → 2022-09-01 09:50 | Outpatient (CLI) | payer MEDICARE, SELFPAY ==
--- NOTE | 2022-09-01 09:52 | US_ITS ---
FINAL REPORT TECHNIQUE: Ultrasound images of the abdomen were obtained. CLINICAL HISTORY: NODULE ON SPLEEN COMPARISON: 03/04/2022 FINDINGS: ABDOMINAL ULTRASOUND COMPLETE: The liver is normal in size and echogenicity without focal abnormality. The gallbladder is partially contracted without obvious stones. The common duct is normal. The right kidney measures 7.4 cm in length and is normal in echogenicity without hydronephrosis. The left kidney measures 8.4 cm in length and is normal in echogenicity without hydronephrosis. The spleen demonstrates a nonspecific 5 mm hyperechoic nodule which could represent small hemangioma, of doubtful significance. The pancreas is obscured by overlying bowel gas. The visualized portions of the aorta and the IVC are normal. The vena cava is unremarkable. IMPRESSION: Unremarkable benign-appearing splenic nodule. Reviewed, Interpreted and Dictated by Juan Miguel Mann MD Transcribed by Bonita Portillo Authenticated and . [facility]
== END ==
PROVIDERS: PCP Internal Medicine; Visit Provider Internal Medicine
DX: R16.1 Splenomegaly, not elsewhere classified (principal)
CPT/HCPCS: 76700

== ENCOUNTER → 2022-12-03 16:49 | Outpatient (CLI) | payer MEDICARE, SELFPAY ==
[2022-12-03 17:15] LABS: Basophils % 0.4 % (0.1-2.0); Eosinophils % 0.4 % (0.1-12.0); Hematocrit 41.2 % (37.0-47.0); Hemoglobin 13.1 g/dL (12.2-16.2); Lymphocytes % 13.6 % (10-50); Mean Corpuscular HGB Conc 31.8 g/dL (31.8-35.4); Mean Corpuscular Hemoglobin 31.7 pg (27.0-31.2); Mean Corpuscular Volume 99.8 fl (81-99); Mean Platelet Volume 9.6 fl (7.4-10.4); Monocytes # 0.4 K/mm3 (0.1-1.0); Monocytes % 5.1 % (1.7-9.3); Neutrophils # 6.1 K/mm3 (1.8-7.8); Neutrophils % 80.5 % (37.0-80.0); Platelet Count 228 K/mm3 (142-424); Red Blood Count 4.13 M/mm3 (4.20-5.40); Red Cell Distribution Width 13.8 % (11.5-17.5); White Blood Count 7.6 K/mm3 (4.8-10.8)
[2022-12-03 17:25] LABS: Chloride 98 mmol/L (98-107); Potassium 4.8 mmoL/L (3.5-5.1); Sodium 136 mmol/L (136-145)
[2022-12-03 17:27] LABS: Alanine Aminotransferase 21 U/L (12-78); Aspartate Amino Transferase 42 U/L (14-36); Blood Urea Nitrogen 38 mg/dl (7-17); Estimated Glomerular Filt Rate 47 ml/min (>60); GFR (African American) 57 ML/MIN (>60)
[2022-12-03 17:28] LABS: Albumin Level 4.2 g/dl (3.5-5.0); Albumin/Globulin Ratio 1.6 (1.1-1.8); Alkaline Phosphatase 92 U/L (38-126); Anion Gap 13.8 mEq/L (5-15); Bilirubin,Total 0.8 mg/dl (0.2-1.3); Carbon Dioxide 29 mmol/L (22.0-30.0); Chol/HDL Ratio 1.9 (1-3.5); Cholesterol 123 mg/dl (140-200); Globulin 2.6 g/dL (1.3-3.2); Glucose 73 mg/dl (74-100); HDL Cholesterol 65 mg/dl (40-60); Total Protein,Serum 6.8 g/dl (6.3-8.2); Triglycerides 67 mg/dl (30-150); VLDL Cholesterol 13 mg/dL (0-40)
[2022-12-03 17:39] LABS: Direct LDL Cholesterol 53.53 mg/dL (100-129)
[2022-12-03 18:28] LABS: 25-OH Vitamin D, Total 32.1 ng/mL (30-100)
== END ==
PROVIDERS: PCP Internal Medicine; Visit Provider Internal Medicine
DX: G40.909 Epilepsy, unspecified, not intractable, without status epilepticus (principal); I87.2 Venous insufficiency (chronic) (peripheral); I10 Essential (primary) hypertension; I48.91 Unspecified atrial fibrillation; I34.0 Nonrheumatic mitral (valve) insufficiency; E78.5 Hyperlipidemia, unspecified; Z68.1 Body mass index [BMI] 19.9 or less, adult
CPT/HCPCS: 80053; 80061; 82306; 85025

== ENCOUNTER → 2022-12-21 13:18 | Outpatient (CLI) | payer MEDICARE, SELFPAY | PROVIDERS: PCP Internal Medicine; Visit Provider Internal Medicine Pulmonary Disease | DX: R91.8 Other nonspecific abnormal finding of lung field (principal) | CPT/HCPCS: 87070; 87077; 87116; 87186; 87205; 87206 ==

== ENCOUNTER → 2022-12-22 13:10 | Outpatient (CLI) | payer MEDICARE, SELFPAY | PROVIDERS: PCP Internal Medicine; Visit Provider Internal Medicine Pulmonary Disease | DX: R06.09 Other forms of dyspnea (principal) | CPT/HCPCS: 94060; 94618; 94726; 94727; 94729 ==

== ENCOUNTER 2022-12-29 17:45 | Observation (INO) | payer MEDICARE, SELFPAY ==
[2022-12-29] VITALS (8 sets, daily range): BP systolic 96–114; BP diastolic 43–58; PULSE 52–98; RESP 14–22; TEMP 36.3–36.7; O2SAT 95–99; BMI 15.7; BMI 14.4; BMI 13.6
--- NOTE | 2022-12-29 18:08 | EXP.UTC ---
Discharge Plan Disposition Patient Disposition: Still a Patient Condition: Fair Prescriptions Prescriptions: No Action furosemide [Lasix] 20 mg tablet 50 mg PO DAILY PRN albuterol sulfate 90 mcg/actuation HFA aerosol inhaler 2 inh inhalation QID PRN (Reason: shortness of breath or wheezing) 90 Days Qty: 8.5 2RF Stiolto Respimat 2.5-2.5 mcg/actuation mist 2 puff inhalation DAILY 90 Days Qty: 4 3RF ICaps [id number] phub-xa-ks-unit tablet extended release 2 tab PO DAILY metoprolol succinate 100 mg tablet extended release 24 hr See Rx Instructions .ROUTE .COMPLEX Qty: 180 3RF Dose Instruction: TAKE ONE TABLET BY MOUTH TWICE A DAY Rx Instructions: TAKE ONE TABLET BY MOUTH TWICE A DAY digoxin 125 mcg (0.125 mg) tablet See Rx Instructions .ROUTE .COMPLEX Qty: 90 3RF Dose Instruction: TAKE 1 TABLET BY MOUTH ONCE DAILY Rx Instructions: TAKE 1 TABLET BY MOUTH ONCE DAILY Eliquis 2.5 mg tablet See Rx Instructions .ROUTE .COMPLEX Qty: 60 5RF Dose Instruction: TAKE ONE TABLET BY MOUTH TWICE A DAY Rx Instructions: TAKE ONE TABLET BY MOUTH TWICE A DAY levetiracetam 500 MG tablet 500 mg PO BID ibandronate 150 MG tablet 150 mg PO MONTHLY triamterene-hydrochlorothiazid 75-50 mg tablet 1 tab PO DAILY Referrals Follow up/Referrals: Best Coelho MD [Primary Care Provider] - See instructions Clinical Impressions Clinical Impression: Acute alteration in mental status Instructions Patient Instructions: DI for Altered Mental Status Discharge ED Provider: Parris Cancino [facility] General Chief complaint: Altered Mental Status Stated complaint: AO 12/22 hard time walking, pain in both legs Mode of Arrival: Ambulatory Source of Information: Patient and Relative Limitations: No Limitations Time Seen by Provider: 12/29/22 18:08 Description of Symptoms (Recalled from Triage Doc. by RN): daughter states today the pt has been disoriented, forgetful and unable to hold a conversation. this is different from her baseline. pt also c/o R hip pain. HEENT Symptoms (Recalled from RN notes): Yes Resp Symptoms (Recalled from RN notes): No Skin Symptoms (Recalled from RN notes): No MS Symptoms (Recalled from RN notes): No Functional Status (Recalled from RN notes): disorientation History of Present Illness Provider Complaint: Daughter states that for the last few weeks patient has been having issues with right sciatica pain and she seen her PCP States that last week she fell getting into the transport bus and hurt her left [place] area States today mother has her concerned States that she has been acting disoriented at times and unable to follow conversations which is out of her ordinary States that she lives by herself and normally does not have an issue Patient states that she got stuck on a bench last night and it took her about an hour to get up Also patient just told daughter that she hasnt taken her medications like she is suppose to this week and has missed several doses Related Data Home Medications Medication Instructions Recorded Confirmed ibandronate 150 mg tablet 150 mg PO MONTHLY osteopenia 06/06/18 12/22/22 levetiracetam 500 mg tablet 500 mg PO BID seizures 06/06/18 12/22/22 [id number]-dzwwkjc-min 2 tab PO DAILY . 01/30/19 12/22/22 3,300 unit-5 mg-200mg-75 unit tablet ER (ICaps) furosemide 20 mg tablet (Lasix) 50 mg PO DAILY PRN 12/08/20 12/22/22 triamterene 75 1 tab PO DAILY blood pressure 06/08/21 12/22/22 mg-hydrochlorothiazide 50 mg tablet Previous Rx's Medication Instructions Recorded digoxin 125 mcg (0.125 mg) tablet See Rx Instructions .Route 07/28/22 .COMPLEX #90 tabs metoprolol succinate 100 mg See Rx Instructions .Route 07/28/22 tablet,extended release 24 hr .COMPLEX #180 tabs apixaban 2.5 mg tablet (Eliquis) See Rx Instructions .Route 09/22/22 .COMPLEX #60 tabs albuterol sulfate 90 mcg/actuation 2
--- NOTE | 2022-12-29 18:19 | XR_ITS ---
PROCEDURE INFORMATION: Exam: XR Left Tibia and Fibula Exam date and time: 12/29/2022 7:18 PM Age: 82 years old Clinical indication: Difficulty in walking; Additional info: Leg injury. Difficulty walking. TECHNIQUE: Imaging protocol: Radiologic exam of the left tibia and fibula. Views: 2 views. COMPARISON: US CA venous doppler LE LT 07/28/2018 11:13 AM FINDINGS: Bones/joints: Normal. No acute fracture. Soft tissues: Soft tissue calcifications are noted along the medial mid to lower leg adjacent to the tibia. IMPRESSION: No acute abnormalities. Soft tissue calcifications that may be dystrophic from prior injury or inflammation.
--- NOTE | 2022-12-29 18:19 | XR_ITS ---
PROCEDURE INFORMATION: Exam: XR Pelvis Exam date and time: 12/29/2022 7:18 PM Age: 82 years old Clinical indication: Hip pain; Right hip; Additional info: Right hip pain TECHNIQUE: Imaging protocol: Radiologic exam of the pelvis. Views: 1 or 2 view. COMPARISON: US URINARY BLADDER 03/04/2022 9:44 AM FINDINGS: Bones/joints: [id number]-[id number] degenerative changes of the right hip with joint space narrowing and spurring. Mild degenerative change of the left hip and both SI joints. No evident fracture. Soft tissues: Unremarkable. IMPRESSION: Degenerative changes most pronounced in the right hip.
--- NOTE | 2022-12-29 18:19 | CT_ITS ---
PROCEDURE INFORMATION: Exam: CT Head Without Contrast Exam date and time: 12/29/2022 7:02 PM Age: 82 years old Clinical indication: Altered mental status/memory loss; Additional info: Confusion TECHNIQUE: Imaging protocol: Computed tomography of the head without contrast. Radiation optimization: All CT scans at this facility use at least one of these dose optimization techniques: automated exposure control; mA and/or kV adjustment per patient size (includes targeted exams where dose is matched to clinical indication); or iterative reconstruction. REPORTING DATA: Count of CT and Cardiac NM exams in prior 12 months: This patient has received [address] and 0 known cardiac nuclear medicine studies in the 12 months prior to the current study. COMPARISON: CR [id number] XR cervical spine 5V 11/24/2017 11:15 AM FINDINGS: Brain: Moderate generalized cerebral/cerebellar atrophy. Mild-moderate bilateral white matter hypodensities which are nonspecific but most commonly associated with chronic microvascular ischemia in this age group. The IACs are grossly normal. No extra-axial fluid collections. Mild prominence of the peripheral CSF spaces, felt to be related to generalized atrophy. No evidence of acute intracranial hemorrhage. No CT evidence of large territory acute or subacute intracranial ischemia/infarct. Very small dural-based partially calcified subcentimeter probable meningioma in the high left frontal distribution on coronal image 34 measuring 7 mm transverse by 7 mm AP and 4 mm in thickness, with no associated mass effect. No midline shift or herniation. Cerebral ventricles: Mild-moderate compensatory ventriculomegaly secondary to central atrophy. Pituitary gland and sella: The sella is grossly normal. Paranasal sinuses: Wall thickening/sclerosis and mucosal thickening in the right maxillary sinus consistent with changes of chronic sinusitis, with fluid level present concerning for acute on chronic sinusitis. The other paranasal sinuses are clear. Mastoid air cells: Visualized mastoid air cells are clear. Orbital cavities: No acute intraorbital findings. Prior bilateral ocular lens extraction. Bones/joints: The calvarium and visualized facial bones are intact. Soft tissues: The scalp and visualized soft tissues demonstrate no acute abnormality. Vasculature: Moderate calcific atherosclerosis. No asymmetric vascular hyperdensities suggestive of thrombosis are identified. Other findings: Drummond-white matter differentiation is well maintained. IMPRESSION: 1. No acute intracranial process. No intracranial hemorrhage or mass effect. 2. Atrophy and microvascular changes consistent with age. 3. Moderate calcific atherosclerosis. 4. Changes of acute on chronic right maxillary sinusitis. 5. Additional nonemergent findings detailed above.
--- NOTE | 2022-12-29 18:19 | XR_ITS ---
PROCEDURE INFORMATION: Exam: XR Chest Exam date and time: 12/29/2022 7:18 PM Age: 82 years old Clinical indication: Shortness of breath; Additional info: SOA TECHNIQUE: Imaging protocol: Radiologic exam of the chest. Views: 1 view. COMPARISON: CT CHEST WO CON 07/30/2022 11:14 AM and chest x-ray 06/08/2022 and 10/07/2020 FINDINGS: Lungs: Unremarkable. No consolidation. Pleural spaces: Unremarkable. No pleural effusion. No pneumothorax. Heart/Mediastinum: Cardiomegaly is stable. Vascularity appears normal. Bones/joints: Unremarkable. IMPRESSION: Stable chest x-ray with no acute disease.
--- NOTE | 2022-12-29 18:21 | ECG_ITS ---
APPROVED REPORT Exam: Resting ECG HR:56 bpm ECG Measurements Heart Rate 56 AXES QRSd 71 QRS 74 QT 335 T -81 QTc 328 Conclusion ATRIAL FIBRILLATION WITH SLOW VENTRICULAR RESPONSE LOW QRS VOLTAGE IN EXTREMITY LEADS [QRS DEFLECTION < 0.5 mV IN LIMB LEADS] SEPTAL MYOCARDIAL INFARCTION , PROBABLY OLD [40+ ms Q WAVE IN V1/V2] MODERATE T-WAVE ABNORMALITY, CONSIDER INFERIOR ISCHEMIA [-0.1+ mV T-WAVE IN II/aVF] ABNORMAL ECG UNCONFIRMED REPORT Electronically signed by : Edison Gallo MD 12/29/2022 21:16:27
--- NOTE | 2022-12-29 18:39 | HMH.EDGENADL ---
Discharge Plan Disposition Patient Disposition: Still a Patient Condition: Fair Prescriptions Prescriptions: No Action furosemide [Lasix] 20 mg tablet 50 mg PO DAILY PRN albuterol sulfate 90 mcg/actuation HFA aerosol inhaler 2 inh inhalation QID PRN (Reason: shortness of breath or wheezing) 90 Days Qty: 8.5 2RF Stiolto Respimat 2.5-2.5 mcg/actuation mist 2 puff inhalation DAILY 90 Days Qty: 4 3RF ICaps [id number] maaq-tl-eo-unit tablet extended release 2 tab PO DAILY metoprolol succinate 100 mg tablet extended release 24 hr See Rx Instructions .ROUTE .COMPLEX Qty: 180 3RF Dose Instruction: TAKE ONE TABLET BY MOUTH TWICE A DAY Rx Instructions: TAKE ONE TABLET BY MOUTH TWICE A DAY digoxin 125 mcg (0.125 mg) tablet See Rx Instructions .ROUTE .COMPLEX Qty: 90 3RF Dose Instruction: TAKE 1 TABLET BY MOUTH ONCE DAILY Rx Instructions: TAKE 1 TABLET BY MOUTH ONCE DAILY Eliquis 2.5 mg tablet See Rx Instructions .ROUTE .COMPLEX Qty: 60 5RF Dose Instruction: TAKE ONE TABLET BY MOUTH TWICE A DAY Rx Instructions: TAKE ONE TABLET BY MOUTH TWICE A DAY levetiracetam 500 MG tablet 500 mg PO BID ibandronate 150 MG tablet 150 mg PO MONTHLY triamterene-hydrochlorothiazid 75-50 mg tablet 1 tab PO DAILY Referrals Follow up/Referrals: Best Coelho MD [Primary Care Provider] - See instructions Clinical Impressions Clinical Impression: Acute alteration in mental status Instructions Patient Instructions: DI for Altered Mental Status Discharge ED Provider: Parris Cancino Adult HPI General Chief complaint: Altered Mental Status Stated complaint: AO 12/22 hard time walking, pain in both legs Time Seen by Provider: 12/29/22 18:08 Mode of Arrival: Ambulatory Source of Information: Patient and Relative Limitations: No Limitations Description of Symptoms (Recalled from ER Triage Doc. by RN): daughter states today the pt has been disoriented, forgetful and unable to hold a conversation. this is different from her baseline. pt also c/o R hip pain. History of Present Illness HPI narrative: 82-year-old female with history of smoking A-fib hypertension presents with confusion and forgetfulness. Daughter says that she has been more confused and normal has not been taking by mouth. No vomiting or diarrhea no fever. No chest pain or shortness of air. She does not have a headache. She has had weakness in the right hip and had a mechanical fall the other day and injured her left lower leg. She has a bruise on that leg now. No dysuria or hematuria. No cough or difficulty breathing. Related Data Home Medications Medication Instructions Recorded Confirmed ibandronate 150 mg tablet 150 mg PO MONTHLY osteopenia 06/06/18 12/22/22 levetiracetam 500 mg tablet 500 mg PO BID seizures 06/06/18 12/22/22 [id number]-[id number]-min 2 tab PO DAILY . 01/30/19 12/22/22 3,300 unit-5 mg-200mg-75 unit tablet ER (ICaps) furosemide 20 mg tablet (Lasix) 50 mg PO DAILY PRN 12/08/20 12/22/22 triamterene 75 1 tab PO DAILY blood pressure 06/08/21 12/22/22 mg-hydrochlorothiazide 50 mg tablet Previous Rx's Medication Instructions Recorded digoxin 125 mcg (0.125 mg) tablet See Rx Instructions .Route 07/28/22 .COMPLEX #90 tabs metoprolol succinate 100 mg See Rx Instructions .Route 07/28/22 tablet,extended release 24 hr .COMPLEX #180 tabs apixaban 2.5 mg tablet (Eliquis) See Rx Instructions .Route 09/22/22 .COMPLEX #60 tabs albuterol sulfate 90 mcg/actuation 2 inh inhalation QID PRN shortness 12/22/22 aerosol inhaler of breath or wheezing 90 days #8.5 grams tiotropium 2.5 mcg-olodaterol 2.5 2 puff inhalation DAILY 90 days #4 12/22/22 mcg/actuation mist for inhalation grams (Stiolto Respimat) Allergies Allergy/AdvReac Type Severity Reaction Status Date / Time cephalexin [From Keflex] Allergy Verified 12/29/22 18:07 P
[2022-12-29 19:04] LABS: Basophils % 0.3 % (0.1-2.0); Eosinophils # 0.1 K/mm3 (0.0-0.4); Eosinophils % 1.1 % (0.1-12.0); Hematocrit 39.5 % (37.0-47.0); Hemoglobin 12.4 g/dL (12.2-16.2); Lymphocytes # 1.1 K/mm3 (0.7-4.5); Lymphocytes % 11.8 % (10-50); Mean Corpuscular HGB Conc 31.4 g/dL (31.8-35.4); Mean Corpuscular Hemoglobin 31.2 pg (27.0-31.2); Mean Corpuscular Volume 99.4 fl (81-99); Mean Platelet Volume 8.7 fl (7.4-10.4); Monocytes # 0.5 K/mm3 (0.1-1.0); Monocytes % 5.5 % (1.7-9.3); Neutrophils # 7.6 K/mm3 (1.8-7.8); Neutrophils % 81.3 % (37.0-80.0); Platelet Count 236 K/mm3 (142-424); Red Blood Count 3.98 M/mm3 (4.20-5.40); White Blood Count 9.4 K/mm3 (4.8-10.8)
[2022-12-29 19:04] LABS: VBG Base Excess -0.8 mmol/L (-2.4-2.3); VBG HCO3 23.5 mmol/L (23-30); VBG Oxygen Saturation 49.1 % (50-70); VBG PCO2 36.4 mmol/L (35-51); VBG PH 7.43 mmol/L (7.31-7.41); VBG PO2 21.5 mmol/L (28-40); VBG Total CO2 24.6 mmol/L (23-27)
[2022-12-29 19:12] LABS: Chloride 94 mmol/L (98-107); Potassium 4.8 mmoL/L (3.5-5.1); Sodium 136 mmol/L (136-145)
[2022-12-29 19:15] LABS: Alanine Aminotransferase 18 U/L (12-78); Albumin Level 3.8 g/dl (3.5-5.0); Albumin/Globulin Ratio 1.3 (1.1-1.8); Alkaline Phosphatase 75 U/L (38-126); Anion Gap 17.8 mEq/L (5-15); Aspartate Amino Transferase 38 U/L (14-36); Bilirubin,Total 0.4 mg/dl (0.2-1.3); Blood Urea Nitrogen 73 mg/dl (7-17); Carbon Dioxide 29 mmol/L (22.0-30.0); Creatinine Clearance Estimated 16 mL/min (50-200); Estimated Glomerular Filt Rate 27 ml/min (>60); GFR (African American) 32 ML/MIN (>60); Total Protein,Serum 6.8 g/dl (6.3-8.2)
[2022-12-29 19:16] LABS: Calcium 9.4 mg/dl (8.4-10.2); Glucose 111 mg/dl (74-100); Lactic Acid 1.3 mmol/L (0.7-2.1); Magnesium 2.6 mg/dl (1.6-2.3)
--- NOTE | 2022-12-29 19:18 | CT_ITS ---
PROCEDURE INFORMATION: Exam: CT Pelvis Without Contrast; Skeletal Exam date and time: 12/29/2022 7:21 PM Age: 82 years old Clinical indication: Hip pain; Right hip; Additional info: Right hip pain TECHNIQUE: Imaging protocol: Computed tomography of the pelvis without contrast. Exam focused on the skeleton. Radiation optimization: All CT scans at this facility use at least one of these dose optimization techniques: automated exposure control; mA and/or kV adjustment per patient size (includes targeted exams where dose is matched to clinical indication); or iterative reconstruction. REPORTING DATA: Count of CT and Cardiac NM exams in prior 12 months: This patient has received [address] and 0 known cardiac nuclear medicine studies in the 12 months prior to the current study. COMPARISON: CR XR PELVIS 1-2V 12/29/2022 7:18 PM FINDINGS: Bones/joints: [id number]-vh-[id number] degenerative changes of the right hip with joint narrowing and spurring. Well corticated bony densities are noted adjacent to the anterior right acetabulum that may be accessory ossicles or residual of old trauma. Mild degenerative spurring of the left hip and both SI joints. Advanced degenerative changes at the L5-S1 level. Transitional segment of the lumbar spine. No acute fracture. Soft tissues: Unremarkable. IMPRESSION: Degenerative changes of the hips and SI joints most pronounced involving the right hip. Chronic bony densities adjacent to the anterior right acetabulum may be accessory ossicles or residual of old trauma. No acute abnormality.
[2022-12-29 19:22] LABS: Coronavirus 19, PCR Not Detected (NotDetected); Influenza A, PCR Not Detected (NotDetected); Influenza B, PCR Not Detected (NotDetected)
[2022-12-29 19:28] LABS: Troponin I 0.04 ng/ml (0.00-0.034)
[2022-12-29 19:36] LABS: Microscopic, Urine URINE MICROSCOPIC (MICROSCOPIC)
[2022-12-29 19:46] LABS: Thyroid Stimulating Hormone 3.68 uIU/mL (0.465-4.68)
[2022-12-29 19:48] LABS: Appearance,Urine CLEAR (Clear); Bilirubin,Urine Negative (Negative); Blood, Urine Negative (Negative); Color,Urine YELLOW (Yellow); Glucose,Urine (UA) Negative (Negative); Ketones,Urine Negative (Negative); Leukocyte Esterase,Urine Negative (Negative); Nitrate,Urine Negative (Negative); PH,Urine 5.5 (5.0-8.5); Protein,Urine TRACE (Negative); Specific Gravity, Urine 1.025 (1.005-1.030); Urobilinogen,Urine 0.2 EU/dl (0.2)
[2022-12-29 20:00] LABS: WBC,Urine Occasional #/hpf (0-3)
--- NOTE | 2022-12-29 20:10 | PC.NURSE ---
Marta ALMONTE hospitalist is at bed side
--- NOTE | 2022-12-29 20:26 | EXP.HP ---
History of Present Illness *Admission Date: 12/29/22 *Reason for visit:: Confusion, difficulty ambulating *History of present illness: Ms. Davis is a 82-year-old female with a past medical history of Atrial Fibrillation on chronic anticoagulation, Seizure disorder, COPD, HTN. She presents to [facility], brought in by daughters due to a 1-day history of confusion and difficulty ambulating due to right hip and left kelley pain. In the ER the patient underwent a CT of the head that showed no acute intracranial abnormality, imaging of the pelvis, tib fib and cxray that showed no acute process and CT of the Hip that showed no acute process. CBC was unremarkable, CMP showed an elevated creatinine above patient's most recent baseline at 1.80. EKG showed Atrial Fibrillation with rate of 56. Troponin was 0.04. On exam the patient has a lesion on the anterior left kelley with surrounding erythema. The patient will be admitted with initial impression: Dehydration, left lower extremity cellulitis and Functional Decline. The patient will be given iv fluids, antibiotic for cellulitis and PT will be consulted to see the patient. The plan of care was discussed with the patient and family at bedside. All verbalized understanding and agreement with the plan of care. [facility] Disclaimer: The information contained in this section may have been updated after the patient was seen, as this information can be updated by other users. Medical History Abnormal computerized axial tomography of chest Abnormal EKG Atypical pneumonia Bradycardia Dyspnea on exertion Edema History of smoking 30 or more pack years HTN (hypertension) nursing home current use of anticoagulant therapy Lung nodule Moderate mitral regurgitation Pleural scarring Pulmonary emphysema Smoking greater than 30 pack years Tricuspid regurgitation Surgical History History of back surgery History of hysterectomy Family History Other Cancer Social History Smoking Status: Never smoker second hand exposure: No alcohol intake: never substance use type: denies use current occupational status: retired Travel in the last 8 weeks: None housing: house current occupational exposures/hazards: No Review of Systems Review of Systems Review of systems:: pertinent systems reviewed and negative unless documented below Constitutional Constitutional: Reports system reviewed and no additional complaints, except as documented Eyes Eyes: Reports system reviewed and no additional complaints, except as documented ENT Ears, Nose, Mouth, and Throat: Reports system reviewed and no additional complaints, except as documented *Cardiovascular Cardiovascular: Reports system reviewed and no additional complaints, except as documented *Respiratory Respiratory: Reports system reviewed and no additional complaints, except as documented *Gastrointestinal Gastrointestinal: Reports system reviewed and no additional complaints, except as documented *Genitourinary Genitourinary: Reports system reviewed and no additional complaints, except as documented *Musculoskeletal Musculoskeletal: Reports limited range of motion and Reports muscle weakness Integumentary/Breasts Skin/Breast: Reports system reviewed and no additional complaints, except as documented *Neurologic Neurologic: Reports system reviewed and no additional complaints, except as documented, Reports as per HPI and Reports confusion Psychiatric Psychiatric: Reports system reviewed and no additional complaints, except as documented and Reports confusion Endocrine Endocrine: Reports system reviewed and no additional complaints, except as documented Hematologic/Lymphatic Hematologic/Lymphatic: Reports system reviewed and no additi
--- NOTE | 2022-12-29 21:08 | PC.NURSE ---
Called report to Namita Luther RN
--- NOTE | 2022-12-29 21:16 | PC.NURSE ---
Pt arrived to floor via wheelchair @ 2113
[2022-12-29 22:06] LABS: Troponin I 0.04 ng/ml (0.00-0.034)
--- NOTE | 2022-12-29 22:24 | PC.WOUNDNOTE ---
ABRASION NOTED FROM FALL PT STATES FROM VENOUS INSUFFICIENCY
[2022-12-30 01:55] LABS: Troponin I 0.04 ng/ml (0.00-0.034)
--- NOTE | 2022-12-30 03:56 | PC.NURSE ---
A&OX4. TOLERATING RA WELL. DOES HAVE REDNESS TO BLE AND ABRASION TO L FLORES FROM FALL, PICTURE ON CHART. DX APPLIED. REVIEWED PT HOME MEDS WITH LIST FROM DAUGHTER, BUT NEITHER WERE ABLE TO STATE WHEN SHE HAD MEDICATIONS LAST. PT STANDBY ASSIST TO BATHROOM WITH CANE FROM HOME. HAS SLEPT MAJORITY OF SHIFT. NO C/O NOTED THUS FAR, VSS.
[2022-12-30 04:00] VITALS: BP 87/43; PULSE 57; RESP 14; TEMP 36.2; O2SAT 94; BMI 13.6
[2022-12-30 08:00] VITALS: BP 90/51; PULSE 55; RESP 15; TEMP 36.4; O2SAT 94
[2022-12-30 08:21] LABS: Basophils % 0.3 % (0.1-2.0); Eosinophils # 0.1 K/mm3 (0.0-0.4); Eosinophils % 0.9 % (0.1-12.0); Hematocrit 34.8 % (37.0-47.0); Lymphocytes # 1.4 K/mm3 (0.7-4.5); Lymphocytes % 14.9 % (10-50); Mean Corpuscular HGB Conc 31.8 g/dL (31.8-35.4); Mean Corpuscular Hemoglobin 31.8 pg (27.0-31.2); Mean Corpuscular Volume 100.1 fl (81-99); Mean Platelet Volume 7.9 fl (7.4-10.4); Monocytes # 0.6 K/mm3 (0.1-1.0); Monocytes % 6.1 % (1.7-9.3); Neutrophils # 7.5 K/mm3 (1.8-7.8); Neutrophils % 77.8 % (37.0-80.0); Platelet Count 203 K/mm3 (142-424); Red Blood Count 3.48 M/mm3 (4.20-5.40); White Blood Count 9.6 K/mm3 (4.8-10.8)
[2022-12-30 08:33] LABS: Chloride 100 mmol/L (98-107); Potassium 3.6 mmoL/L (3.5-5.1); Sodium 138 mmol/L (136-145)
[2022-12-30 08:35] LABS: Alanine Aminotransferase 16 U/L (12-78); Alkaline Phosphatase 67 U/L (38-126); Aspartate Amino Transferase 36 U/L (14-36); Bilirubin,Total 0.3 mg/dl (0.2-1.3); Blood Urea Nitrogen 59 mg/dl (7-17); Creatinine Clearance Estimated 20 mL/min (50-200); Estimated Glomerular Filt Rate 36 ml/min (>60); GFR (African American) 43 ML/MIN (>60)
[2022-12-30 08:36] LABS: Albumin Level 3.2 g/dl (3.5-5.0); Albumin/Globulin Ratio 1.3 (1.1-1.8); Anion Gap 15.6 mEq/L (5-15); Calcium 8.3 mg/dl (8.4-10.2); Carbon Dioxide 26 mmol/L (22.0-30.0); Globulin 2.5 g/dL (1.3-3.2); Glucose 71 mg/dl (74-100); Total Protein,Serum 5.7 g/dl (6.3-8.2)
[2022-12-30 08:57] LABS: Hemoglobin 11.1 g/dL (12.2-16.2)
[2022-12-30 09:06] VITALS: PULSE 56
--- NOTE | 2022-12-30 09:11 | HMH.OTEV ---
OT Inpatient Evaluation Rehab OT IP Evaluation Start: 12/30/22 07:58 Freq: ONCE Status: Active Protocol: Document 12/30/22 09:00 SUSANMAXIMINO (Rec: 12/30/22 09:09 SUSANMAXIMINO [id number]) Rehab OT IP Assessment Subjective History Ms. Davis is a 82-year-old female with a past medical history of Atrial Fibrillation on chronic anticoagulation, Seizure disorder, COPD, HTN. She presents to [facility], brought in by daughters due to a 1-day history of confusion and difficulty ambulating due to right hip and left kelley pain. In the ER the patient underwent a CT of the head that showed no acute intracranial abnormality, imaging of the pelvis, tib fib and cxray that showed no acute process and CT of the Hip that showed no acute process. CBC was unremarkable , CMP showed an elevated creatinine above patient's most recent baseline at 1.80. EKG showed Atrial Fibrillation with rate of 56. Troponin was 0.04. On exam the patient has a lesion on the anterior left kelley with surrounding erythema. The patient will be admitted with initial impression: Dehydration, left lower extremity cellulitis and Functional Decline. The patient will be given iv fluids, antibiotic for cellulitis and PT will be consulted to see the patient. The plan of care was discussed with the patient and family at bedside. All verbalized understanding and agreement with the plan of care. I want to get up and go to the restroom. Patient lives at home alone with dtr who check on her
--- NOTE | 2022-12-30 11:14 | HMH.PTEV ---
Physical Therapy Evaluation Rehab PT IP Evaluation Start: 12/29/22 20:25 Freq: ONCE Status: Active Protocol: Document 12/30/22 09:45 PHORDANN (Rec: 12/30/22 11:13 PHORNE [id number]) Subjective/History History History 82 yowf adm to [facility] with AMS. She has hx of a-fib, seizure disorder, COPD, and HTN. She reports she lives alone, ramp to enter the home, uses a cane for ambulation, and does not drive any longer so she relies on her daughters for transportation. Subjective Subjective Pt without c/o this am, agrees to mobility assessment. Rehab PT IP Eval Objective Appearance Patient Behavior Appropriate Patient Orientation Person,Place,Time Difficulty following instructions none Speech Pattern Clear Ambulation Patient Able to Ambulate Yes Ambulation Observation IP General Gait Pattern Observation Decrease Stride Lngth (R), Decrease Stride Lngth (L) Ambulation Distance (feet) 200 Ambulation Assistive Device Straight Cane Ambulation Ability Supervision/Stand by Balance Ability to Arise Able, uses arms to help Sitting Balance Steady, safe Standing Balance Steady, wide stance Dynamic Sitting Balance Ability Good Dynamic Standing Balance Ability Fair Transfers Bed Transfer Ability Supervision/Stand by Chair Transfer Ability Supervision/Stand by Sit to Stand Bed Transfer Ability Supervision/Stand by Sit to Stand Chair Transfer Ability Supervision/Stand by ROM All Extremities PT ROM Status WFL MMT All Extremities PT MMT WFL Rehab PT IP prob,goals,plan Problems Date of Evaluation: 12/30/22 Discharge Plan PT Discharge Plan Pt currently appears to be at baseline for all mobility and is appropriate to return home once medically stable for d/c. Recommend Home Health therapy . G -code Required No Eval Complexity Eval Charge Codes 42265 - Moderate Complexity PHYSICIAN CERTIFICATION: I certify the specified therapy services for Radha Davis are required, authorized, and reviewed every 30 days.
--- NOTE | 2022-12-30 11:22 | SW/DCPLANNER ---
Addendum entered by Genet Aquino 12/30/22 12:43: Kathy vaughan/ [facility] is able to accept this patient for services. Original Note: PT/OT evaluated patient and recommended home health services. I did speak with patient and her daughter regarding home health services. Patient is agreeable and preferred [facility] however they do not accept her insurance. Patient information/order has been faxed to [facility]. Patient will discharge home today.
--- NOTE | 2022-12-30 11:55 | EXP.DC.SUM ---
General Admission date:: 12/29/22 Discharge date: 12/30/22 HPI HPI HPI: Ms. Davis is a 82-year-old female with a past medical history of Atrial Fibrillation on chronic anticoagulation, Seizure disorder, COPD, HTN. She presents to [facility], brought in by daughters due to a 1-day history of confusion and difficulty ambulating due to right hip and left kelley pain. In the ER the patient underwent a CT of the head that showed no acute intracranial abnormality, imaging of the pelvis, tib fib and cxray that showed no acute process and CT of the Hip that showed no acute process. CBC was unremarkable, CMP showed an elevated creatinine above patient's most recent baseline at 1.80. EKG showed Atrial Fibrillation with rate of 56. Troponin was 0.04. On exam the patient has a lesion on the anterior left kelley with surrounding erythema. The patient will be admitted with initial impression: Dehydration, left lower extremity cellulitis and Functional Decline. The patient will be given iv fluids, antibiotic for cellulitis and PT will be consulted to see the patient. The plan of care was discussed with the patient and family at bedside. All verbalized understanding and agreement with the plan of care. Hospital Course Hospital Course Hospital Course: 82-year-old female with past medical history of Atrial Fibrillation on chronic anticoagulation, Seizure Disorder, COPD presents due to difficulty ambulating and confusion - Dehydration Family reports has not been eating or drinking well. Taking diuretics at home. Held during admission. Given gentle fluid rehydration. Responded well with improvement in labs. Tolerating p.o. intake during admission. Adjustments made to meds, see med rec for full details. Stable for discharge home. - Confusion: CT of the head shows no acute findings. Patient back to baseline mentation morning after admission. Answering questions appropriately. Suspect secondary to her dehydration and YOSI. PT evaluated, at baseline level of function. Ambulating well. Recommend home health PT - SI joint arthiritis: CT of the Hip showed degenerative changes of the hip on the right SI joint. PT for evaluation, exercises, therapy. Referred to for PT/OT/[facility] after discharge. - YOSI: Patient's most recent baseline creatinine 1.1, elevated on admission to 1.8, decreased to 1.4 with fluid resuscitation. Held home diuretics. Stopped at discharge. responded well to IV fluid. - Atrial Fibrillation: Continue Metoprolol, Xarelto - Seizure Disorder: Continue home dose of Levetiractam - COPD: Continue home inhalers Back to baseline mentation. Spent time discussing patient's status with daughters at bedside prior to discharge. We will refer to home health for further treatment as an outpatient. Stable for discharge home. Spent 40 minutes in discharge counseling and direct care with patient. Exam Data for Last 24 hours Vital signs and Labs for Last 24 Hours: Temp Pulse Resp BP Pulse Ox 97.6 F 56 L 15 90/51 L 94 L 12/30/22 08:00 12/30/22 09:06 12/30/22 08:00 12/30/22 08:00 12/30/22 08:00 Laboratory Results - last 24 hr 12/29/22 18:19: VBG pH 7.43 H, VBG pCO2 36.4, VBG pO2 21.5 L, VBG HCO3 23.5, VBG Total CO2 24.6, VBG O2 Saturation 49.1 L, VBG Base Excess -0.8 12/29/22 18:50: WBC 9.4, RBC 3.98 L, Hgb 12.4, Hct 39.5, MCV 99.4 H, MCH 31.2, MCHC 31.4 L, RDW 14.0, Plt Count 236, MPV 8.7, Neut % (Auto) 81.3 H, Lymph % (Auto) 11.8, [place] % (Auto) 5.5, Eos % (Auto) 1.1, Baso % (Auto) 0.3, Neut # (Auto) 7.6, Lymph # (Auto) 1.1, [place] # (Auto) 0.5, Eos # (Auto) 0.1, Baso # (Auto) 0.0 12/29/22 18:50: Sodium 136, Potassium 4.8, Chloride 94 L, Carbon Dioxide 29, Anion Gap 17.8 H, BUN 73 H, Creatinine 1.80 H, Estimated Creat Clear 16, Estimated GFR 27 L, Est GFR ( Amer) 32 L, Glucose 111 H, Calcium 9.4, Magnesium 2.6 H, Total Bilirubin 0.4, AST 38 H, ALT 18, Alkaline Phosphatase 75, Troponin I 0.04 H, Total Protein
--- NOTE | 2022-12-30 13:39 | HMH.PHAINT1 ---
Pharmacy Intervention Comments: DISCHARGE MEDICATION COUNSELING PROVIDED. DISCUSSED WITH PATIENT AND DAUGHTER THE CHANGE ON METOPROLOL FROM 100 MG TWICE DAILY TO 50 MG TWICE DAILY AND STOP THE TRIAMTERENE/HCTZ. NO QUESTIONS VERBALIZED AT THIS TIME.
--- NOTE | 2023-01-03 14:02 | CARE MANAGER ---
Contacted patient related to hospital discharge. She states she is feeling better and denies any questions or concerns. KYRA Aranda
== END 2022-12-30 13:47 | disposition home health service (06) ==
LOC: UTC 17:49 → ER 18:08 → 2ND 20:49
PROVIDERS: Admitting Provider Internal Medicine Adolescent Medicine; Emergency Provider Emergency Medicine; PCP Internal Medicine; Visit Provider Internal Medicine Adolescent Medicine
DX: E86.0 Dehydration (principal); I48.91 Unspecified atrial fibrillation; Z79.01 Long term (current) use of anticoagulants; J44.9 Chronic obstructive pulmonary disease, unspecified; I10 Essential (primary) hypertension; L03.116 Cellulitis of left lower limb; G40.909 Epilepsy, unspecified, not intractable, without status epilepticus; Z79.899 Other long term (current) drug therapy; F17.210 Nicotine dependence, cigarettes, uncomplicated; Z20.822 Contact with and (suspected) exposure to COVID-19
CPT/HCPCS: G0378; 36415; 70450; 71045; 72170; 72192; 73590; 80053; 81001; 82803; 83605; 83735; 84443; 84484; 85025; 87040; 93005; 97162; 97165; 99285; C9803; U0003; U0005

== ENCOUNTER → 2023-01-11 15:17 | Outpatient (CLI) | payer MEDICARE, SELFPAY ==
[2023-01-11 17:32] LABS: Chloride 97 mmol/L (98-107); Sodium 137 mmol/L (136-145)
[2023-01-11 17:36] LABS: Blood Urea Nitrogen 28 mg/dl (7-17); Calcium 9.7 mg/dl (8.4-10.2); Carbon Dioxide 30 mmol/L (22.0-30.0); Estimated Glomerular Filt Rate 68 ml/min (>60); GFR (African American) 83 ML/MIN (>60); Glucose 75 mg/dl (74-100)
== END ==
PROVIDERS: PCP Internal Medicine; Visit Provider Nurse Practitioner
DX: I07.1 Rheumatic tricuspid insufficiency (principal); I34.0 Nonrheumatic mitral (valve) insufficiency; I48.91 Unspecified atrial fibrillation; J44.9 Chronic obstructive pulmonary disease, unspecified; R06.00 Dyspnea, unspecified; R07.89 Other chest pain; R60.9 Edema, unspecified; Z87.891 Personal history of nicotine dependence
CPT/HCPCS: 36415; 80048

== ENCOUNTER → 2023-01-14 20:01 | Outpatient (CLI) | payer MEDICARE, SELFPAY | PROVIDERS: PCP Internal Medicine; Visit Provider Internal Medicine | DX: S81.802A Unspecified open wound, left lower leg, initial encounter (principal) | CPT/HCPCS: 87070; 87205 ==

== ENCOUNTER → 2023-01-21 16:55 | Outpatient (CLI) | payer MEDICARE, SELFPAY ==
[2023-01-21 17:33] LABS: Chloride 97 mmol/L (98-107); Potassium 3.8 mmoL/L (3.5-5.1); Sodium 139 mmol/L (136-145)
[2023-01-21 17:36] LABS: Anion Gap 12.8 mEq/L (5-15); Blood Urea Nitrogen 27 mg/dl (7-17); Calcium 10.1 mg/dl (8.4-10.2); Carbon Dioxide 33 mmol/L (22.0-30.0); Estimated Glomerular Filt Rate 60 ml/min (>60); GFR (African American) 72 ML/MIN (>60); Glucose 73 mg/dl (74-100)
== END ==
PROVIDERS: PCP Internal Medicine; Visit Provider Internal Medicine
DX: I87.2 Venous insufficiency (chronic) (peripheral) (principal); R60.0 Localized edema; K62.5 Hemorrhage of anus and rectum
CPT/HCPCS: 80048

== ENCOUNTER → 2023-02-18 12:47 | Outpatient (CLI) | payer MEDICARE, SELFPAY ==
--- NOTE | 2023-02-18 12:47 | NM_ITS ---
APPROVED REPORT Exam: Nuclear Stress Test Patient Location: Outpatient Stress Tech: Nasra Gallego [place] Tech:Gemini BarriosEMILY RT(R)(N) Ht: 5 ft 8 in Wt: 109 lbs Bra Size: A HR: 58 bpm BP: 153/76 mmHg BSA: 1.58 m2 TID: 1.34 BMI: 16.5 Procedure: Patient received 0.4 mg of intravenous Lexiscan, resting heart rate 58 bpm, resting blood pressure 153/76 mmHg, with Lexiscan maximum heart rate achieved was 111 bpm which is % of the maximum predicted heart rate and blood pressure was 153/76 mmHg. With Lexiscan, patient denied any complaint of chest pain. Cardiac Stress and Resting SPECT Images: Cardiac Stress and Resting SPECT images were obtained using technetium 99m Myoview 32.8 mCi stress and 10.65 mCi at rest. Resting and stress perfusion imaging in both supine and prone positions demonstrate no fixed or reversible perfusion defects. There is borderline increase in transient ischemic dilatation ratio (TID 1.34), suggestive of possible multivessel disease or balanced ischemia. Gated imaging demonstrates normal global and regional LV systolic function. LVEF is calculated at 72%. Conclusion: No fixed or reversible perfusion defects. There is borderline increase in transient ischemic dilatation ratio (TID 1.34), suggestive of possible multivessel disease or balanced ischemia. Gated imaging demonstrates normal global and regional LV systolic function. LVEF is calculated at 72%. Electronically signed by : Nikki Hunter, 02/21/2023 00:43:45
--- NOTE | 2023-02-18 14:27 | CA_ITS ---
APPROVED REPORT Exam: Pharmacologic Technologist: Nasra Wayne, Ht: 5 ft 9 in Wt: 109 lbs BSA: 1.60 m2 HR: 60 bpm BP: 153/76 mmHg Rhythm: Atrial Fibrillation Medical History Medications: Albuterol,,,,, Digoxin,,,,, Levetiracetam,,,,, ElIQUIS,,,,, Escitalopram Oxalate,,,,, StIOLto,,,,, Metoprolol Succinate ER,,,,, ICaps,,,,, Ibandronate,,,,, Stress Test Details Test: LEXISCAN Reason for pharmacologic stress test: physical limitation. HR Resting HR: 58 bpm Max Heart Rate (APMHR): 136 bpm Max HR Achieved: 111 bpm Target HR (85% APMHR): 116 bpm % of APMHR: 82 Recovery HR: 60 bpm BP Resting BP: 153/76 mmHg Max BP: 153/76 mmHg Recovery BP: 140.0/61.0 mmHg ECG Resting ECG: a-fib, slow ventricular rate, low voltage QRS, cannot R/O old septal IL Stress ECG: No change Arrhythmia: None Recovery ECG: No change Recovery Arrhythmia: None Clinical Exercise duration: 04:00 min Highest Stage Achieved: Exercise capacity: n/a METs Stress ECG Conclusion Symptoms: Chest and throat tightness Arrhythmias/Ectopy: Atrial fibrillation. ST-T Changes: No significant changes. Conclusion: Unremarkable Lexiscan stress. Myoview images reported separately. Test Summary REST . . . . . . . Resting REST 09:12 . . 58 . 153/ 76 . . Stage 1 01:00 . . 61 . . . . Stage 2 01:00 . . 78 . . . . Stage 3 01:00 . . 72 . 127/ 60 . . Stage 4 01:00 . . 77 . 139/ 62 . Stop exercise at 04:00 RECOVERY 01:00 . . 64 . . . . RECOVERY 02:00 . . 77 . . . . RECOVERY 03:00 . . 67 . 143/ 65 . . RECOVERY 04:00 . . 63 . 143/ 65 . . RECOVERY 05:00 . . 64 . 140/ 61 . . RECOVERY 05:18 . . 67 . 140/ 61 . . Electronically signed by : Nikki Hunter, 02/21/2023 00:41:32
== END ==
PROVIDERS: PCP Internal Medicine; Visit Provider Nurse Practitioner
DX: I07.1 Rheumatic tricuspid insufficiency (principal); I34.0 Nonrheumatic mitral (valve) insufficiency; I48.91 Unspecified atrial fibrillation; J44.9 Chronic obstructive pulmonary disease, unspecified; R06.00 Dyspnea, unspecified; R07.89 Other chest pain; R60.9 Edema, unspecified; Z87.891 Personal history of nicotine dependence
CPT/HCPCS: 78452; 93017; 93306; A9502; J2785

== ENCOUNTER 2023-02-28 10:39 | Observation (INO) | payer MEDICARE, SELFPAY ==
[2023-02-28] VITALS (9 sets, daily range): BP systolic 108–158; BP diastolic 49–85; PULSE 54–76; RESP 16–23; TEMP 36.4–36.8; O2SAT 84–100; BMI 15.3; BMI 14.8
--- NOTE | 2023-02-28 10:48 | ECG_ITS ---
APPROVED REPORT Exam: Resting ECG HR:70 bpm ECG Measurements Heart Rate 70 AXES QRSd 72 QRS 80 QT 355 T 52 QTc 376 Conclusion ATRIAL FIBRILLATION SEPTAL MYOCARDIAL INFARCTION , PROBABLY OLD [40+ ms Q WAVE IN V1/V2] ABNORMAL ECG UNCONFIRMED REPORT Electronically signed by : Edison Gallo MD 02/28/2023 19:35:27
--- NOTE | 2023-02-28 10:52 | PC.NURSE ---
DR. ADKINS AT BS
--- NOTE | 2023-02-28 11:01 | XR_ITS ---
FINAL REPORT TECHNIQUE: Single view chest CLINICAL HISTORY: dyspnea COMPARISON: 12/29/2022 FINDINGS: A single view of the chest was obtained. The heart and mediastinum are within normal limits. There are worsening upper lobe opacities worrisome for pneumonia. There are small pleural effusions. There is no pneumothorax. Osseous structures are unremarkable. IMPRESSION: Worsening upper lobe opacities worrisome for pneumonia with small pleural effusions. Reviewed, Interpreted and Dictated by Alexi Poole III, MD Transcribed by Marlee Allen Authenticated and [facility]
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
[2023-02-28 11:14] LABS: Coronavirus 19, PCR Not Detected (NotDetected); Influenza A, PCR Not Detected (NotDetected); Influenza B, PCR Not Detected (NotDetected)
[2023-02-28 11:15] LABS: Basophils % 0.3 % (0.1-2.0); Eosinophils # 0.1 K/mm3 (0.0-0.4); Eosinophils % 1.5 % (0.1-12.0); Hematocrit 41.2 % (37.0-47.0); Hemoglobin 12.6 g/dL (12.2-16.2); Lymphocytes # 0.7 K/mm3 (0.7-4.5); Lymphocytes % 8.2 % (10-50); Mean Corpuscular HGB Conc 30.6 g/dL (31.8-35.4); Mean Corpuscular Hemoglobin 29.6 pg (27.0-31.2); Mean Corpuscular Volume 96.7 fl (81-99); Mean Platelet Volume 8.4 fl (7.4-10.4); Monocytes # 0.6 K/mm3 (0.1-1.0); Monocytes % 6.8 % (1.7-9.3); Neutrophils % 83.4 % (37.0-80.0); Platelet Count 354 K/mm3 (142-424); Red Blood Count 4.26 M/mm3 (4.20-5.40); Red Cell Distribution Width 13.1 % (11.5-17.5); White Blood Count 8.4 K/mm3 (4.8-10.8)
[2023-02-28 11:22] LABS: Chloride 97 mmol/L (98-107); Potassium 4.3 mmoL/L (3.5-5.1); Sodium 137 mmol/L (136-145)
[2023-02-28 11:25] LABS: Alanine Aminotransferase 20 U/L (12-78); Albumin Level 3.8 g/dl (3.5-5.0); Albumin/Globulin Ratio 1.2 (1.1-1.8); Alkaline Phosphatase 87 U/L (38-126); Anion Gap 11.3 mEq/L (5-15); Aspartate Amino Transferase 39 U/L (14-36); Bilirubin,Total 0.9 mg/dl (0.2-1.3); Blood Urea Nitrogen 18 mg/dl (7-17); Calcium 9.2 mg/dl (8.4-10.2); Carbon Dioxide 33 mmol/L (22.0-30.0); Creatinine Clearance Estimated 28 mL/min (50-200); Estimated Glomerular Filt Rate 80 ml/min (>60); GFR (African American) 96 ML/MIN (>60); Globulin 3.1 g/dL (1.3-3.2); Glucose 98 mg/dl (74-100); Magnesium 1.7 mg/dl (1.6-2.3); Total Protein,Serum 6.9 g/dl (6.3-8.2)
[2023-02-28 11:34] LABS: NT Pro Brain Natriuretic Pep. 6150 pg/mL (0-450)
[2023-02-28 11:37] LABS: Troponin I 0.05 ng/ml (0.00-0.034)
[2023-02-28 11:42] LABS: Activated Partial Thrombo Time 35.6 seconds (22.8-30.6); INR 1.29 (0.9-1.1); Prothrombin Time 13.7 seconds (10.1-12.5)
--- NOTE | 2023-02-28 11:44 | PC.NURSE ---
DR ADKINS SPEAKING WITH DR ARREOLA FOR ADMISSION
--- NOTE | 2023-02-28 11:49 | PC.NURSE ---
CARE MANAGEMENT NOTIFIED OF ADMISSION
--- NOTE | 2023-02-28 11:55 | PC.NURSE ---
DR ADKINS UPDATING PT AND FAMILY
--- NOTE | 2023-02-28 12:20 | PC.NURSE ---
ASSISTED PT WALKING TO RESTROOM, NOTHING ELSE NEEDED AT THIS TIME, FAMILY AT BS
--- NOTE | 2023-02-28 12:30 | HMH.PHAINT1 ---
Pharmacy Intervention Comments: MEDICATION RECONCILIATION COMPLETED ON PATIENT USING EXTERNAL FILL HISTORY FROM PHARMACY AND LIST FROM CARDIOLOGY OFFICE. -ROMAN FRANKLIN, BARRINGTOND
--- NOTE | 2023-02-28 12:49 | PC.NURSE ---
report called to kyree castro on second floor
--- NOTE | 2023-02-28 12:59 | PC.NURSE ---
pt up to restroom
--- NOTE | 2023-02-28 13:23 | PC.NURSE ---
pt arrived to floor by wheelchair from ER
[2023-02-28 15:09] LABS: Troponin I 0.04 ng/ml (0.00-0.034)
--- NOTE | 2023-02-28 15:53 | EXP.HP ---
History of Present Illness *Admission Date: 02/28/23 *Reason for visit:: Shortness of breath, dry cough *History of present illness: Ms. Davis is a pleasant 82-year-old female with history of COPD, tricuspid urge, and hypertension who presented today to the ER for shortness of breath over the past 3 to 4 days. States she has been having a dry nonproductive cough with increased wheezing. Also states that her lower extremity edema has been a little bit worse lately from her severe tricuspid regurgitation. Recent echo obtained last week showing severe tricuspid regurg. EF preserved however. On work-up in the ER, patient found to have right upper lobe consolidation, left shift and her white cell count, and new oxygen requirement. Also noted to have elevated BNP concerning for CHF exacerbation. Treated with 80 mg IV Lasix x1. Medicine consulted for admission and further management of her CHF exacerbation and pneumonia. Denies any hemoptysis, chest pain, nausea, vomiting, confusion. Stable on 2 L oxygen at this time. On arrival to the floor, patient appears weak and frail. Able to sit up on her own however. Feeling better with oxygen. Pleasant with family at bedside. [facility] Disclaimer: The information contained in this section may have been updated after the patient was seen, as this information can be updated by other users. Medical History Abnormal computerized axial tomography of chest Abnormal EKG Atypical pneumonia Bradycardia Dyspnea on exertion Edema History of smoking 30 or more pack years HTN (hypertension) FPC current use of anticoagulant therapy Lung nodule Moderate mitral regurgitation Pleural scarring Pulmonary emphysema Smoking greater than 30 pack years Tricuspid regurgitation Surgical History History of back surgery History of hysterectomy Family History Cancer Social History Smoking Status: Former smoker pack-years: 20 second hand exposure: No alcohol intake: never substance use type: denies use current occupational status: retired Travel in the last 8 weeks: None housing: house current occupational exposures/hazards: No Review of Systems Review of Systems Review of systems (narrative): 14 point review of systems performed, pertinent positives and negatives as per HPI Meds Home Medications and Allergies Home Medications Medication Instructions Recorded Confirmed Type ibandronate 150 mg tablet 150 mg PO MONTHLY osteopenia 06/06/18 02/28/23 History levetiracetam 500 mg tablet 500 mg PO BID seizures 06/06/18 02/28/23 History [id number]-otwgco-zjqzczn-min 2 tab PO DAILY Supplement 01/30/19 02/28/23 History 3,300 unit-5 mg-200mg-75 unit tablet ER (ICaps) apixaban 2.5 mg tablet (Eliquis) 2.5 mg PO BID Blood thinner/a fib 12/29/22 02/28/23 History digoxin 125 mcg (0.125 mg) tablet 0.125 mg PO DAILY heart rate 12/29/22 02/28/23 History tiotropium 2.5 mcg-olodaterol 2.5 2 puff inhalation DAILY COPD 12/29/22 02/28/23 History mcg/actuation mist for inhalation (Stiolto Respimat) escitalopram oxalate 5 mg tablet 5 mg PO DAILY MOOD 01/11/23 02/28/23 History albuterol sulfate 90 mcg/actuation 2 inh inhalation QIDP PRN 02/28/23 02/28/23 History aerosol inhaler shortness of breath or wheezing furosemide 20 mg tablet (Lasix) 20 mg PO DAILY Fluid 02/28/23 02/28/23 History metoprolol succinate 100 mg 50 mg PO BID Hypertension 02/28/23 02/28/23 History tablet,extended release 24 hr potassium chloride 10 mEq 10 meq PO BID Supplement 02/28/23 02/28/23 History capsule,extended release New Prescriptions to Start Prescriptions: Allergies Allergy/AdvReac Type Severity Reaction Status Date / Time cephalexin [From [facility]] Allergy Verified 02/28/23 13:43 Ex
[2023-02-28 17:51] LABS: Troponin I 0.04 ng/ml (0.00-0.034)
--- NOTE | 2023-02-28 18:36 | PC.NURSE ---
pt pleasant a&o x4, +3 nonpitting edema to ble. no skin issues noted. pt ambulates with sb assist. cont of bowl and bladder. no needs at this time.
--- NOTE | 2023-02-28 20:32 | PC.NURSE ---
Per Lux anderson to give Eliquis 2.5 tonight
[2023-03-01] VITALS (9 sets, daily range): BP systolic 104–114; BP diastolic 49–61; PULSE 50–70; RESP 16–22; TEMP 36.4–36.6; O2SAT 89–98; BMI 14.5
--- NOTE | 2023-03-01 05:20 | PC.NURSE ---
Patient has rested thought the night. Currently still on 3L NC. Patient still gets SOB with movement. No other issues noted by patient.
[2023-03-01 07:12] LABS: Basophils % 0.2 % (0.1-2.0); Eosinophils # 0.3 K/mm3 (0.0-0.4); Eosinophils % 3.3 % (0.1-12.0); Hematocrit 39.5 % (37.0-47.0); Hemoglobin 12.2 g/dL (12.2-16.2); Lymphocytes # 1.1 K/mm3 (0.7-4.5); Lymphocytes % 14.2 % (10-50); Mean Corpuscular HGB Conc 30.9 g/dL (31.8-35.4); Mean Corpuscular Hemoglobin 29.7 pg (27.0-31.2); Mean Corpuscular Volume 96.2 fl (81-99); Mean Platelet Volume 8.2 fl (7.4-10.4); Monocytes # 0.6 K/mm3 (0.1-1.0); Monocytes % 8.4 % (1.7-9.3); Neutrophils # 5.6 K/mm3 (1.8-7.8); Platelet Count 333 K/mm3 (142-424); Red Blood Count 4.11 M/mm3 (4.20-5.40); Red Cell Distribution Width 12.8 % (11.5-17.5); White Blood Count 7.6 K/mm3 (4.8-10.8)
[2023-03-01 07:26] LABS: Chloride 98 mmol/L (98-107); Potassium 4.1 mmoL/L (3.5-5.1); Sodium 137 mmol/L (136-145)
[2023-03-01 07:28] LABS: Blood Urea Nitrogen 21 mg/dl (7-17); Creatinine Clearance Estimated 29 mL/min (50-200); Estimated Glomerular Filt Rate 60 ml/min (>60); GFR (African American) 72 ML/MIN (>60)
[2023-03-01 07:29] LABS: Alanine Aminotransferase 17 U/L (12-78); Albumin Level 2.9 g/dl (3.5-5.0); Albumin/Globulin Ratio 1.1 (1.1-1.8); Alkaline Phosphatase 73 U/L (38-126); Anion Gap 8.1 mEq/L (5-15); Aspartate Amino Transferase 40 U/L (14-36); Bilirubin,Total 0.4 mg/dl (0.2-1.3); Calcium 8.7 mg/dl (8.4-10.2); Carbon Dioxide 35 mmol/L (22.0-30.0); Globulin 2.7 g/dL (1.3-3.2); Glucose 77 mg/dl (74-100); Magnesium 1.7 mg/dl (1.6-2.3); Total Protein,Serum 5.6 g/dl (6.3-8.2)
--- NOTE | 2023-03-01 10:36 | EXP.DC.SUM ---
General Admission date:: 02/28/23 Discharge date: 03/01/23 HPI HPI HPI: Ms. Davis is a pleasant 82-year-old female with history of COPD, tricuspid urge, and hypertension who presented today to the ER for shortness of breath over the past 3 to 4 days. States she has been having a dry nonproductive cough with increased wheezing. Also states that her lower extremity edema has been a little bit worse lately from her severe tricuspid regurgitation. Recent echo obtained last week showing severe tricuspid regurg. EF preserved however. On work-up in the ER, patient found to have right upper lobe consolidation, left shift and her white cell count, and new oxygen requirement. Also noted to have elevated BNP concerning for CHF exacerbation. Treated with 80 mg IV Lasix x1. Medicine consulted for admission and further management of her CHF exacerbation and pneumonia. Denies any hemoptysis, chest pain, nausea, vomiting, confusion. Stable on 2 L oxygen at this time. On arrival to the floor, patient appears weak and frail. Able to sit up on her own however. Feeling better with oxygen. Pleasant with family at bedside. Hospital Course Hospital Course Hospital Course: 82-year-old female with history of emphysema, severe tricuspid regurg, and heart failure with preserved ejection fraction. Presents with several days of cough and shortness of breath. Found to have new oxygen requirement. Concerning for right upper lobe pneumonia and CHF exacerbation. Treated with dose of Lasix in the ER. ER discussed case with medicine, concern for needing hospitalization given new oxygen requirement and diuresis. Medicine agreed to admit for further management. Problems addressed as follows: Acute hypoxemic respiratory failure Pneumonia -Chest x-ray personally reviewed, airspace disease right upper lobe. PSI/port score of 94 on admission. Requiring 2 L nasal cannula oxygen. Weaned on day of discharge, still requiring 1 L at time of discharge for goal saturation greater 90%. Continued albuterol and Stiolto during admission. Patient was initiated on levofloxacin 750 mg. Given her renal function, will dose Levaquin at every 48 hour interval. Next dose due tomorrow 03/02, with final dose on 03/04. Stable for discharge home. Heart failure with preserved ejection fraction, acute on chronic Severe tricuspid regurgitation Mild mitral regurgitation Bilateral pleural effusions -BNP elevated on presentation above 6000. Treated with Lasix 80 mg IV x1. Urine output adequate, voided independently so unable to get strict I's and O's. Edema better in her legs today however. States she is feeling better. Recommend increasing her home regimen to Lasix 40 mg p.o. daily. Prescription sent to her pharmacy. Blood pressure well controlled. Continued her home regimen of metoprolol, digoxin and, and Elick was. Seizure disorder, continued home regimen of Keppra 500 mg twice daily Stable for discharge home with follow-up with her PCP in the next 1 to 2 weeks. Patient would benefit from home health eval. Order sent. Exam Data for Last 24 hours Vital signs and Labs for Last 24 Hours: Temp Pulse Resp BP Pulse Ox 97.8 F 67 18 114/61 90 L 03/01/23 07:37 03/01/23 08:10 03/01/23 07:37 03/01/23 07:37 03/01/23 10:03 Laboratory Results - last 24 hr 02/28/23 10:55: WBC 8.4, RBC 4.26, Hgb 12.6, Hct 41.2, MCV 96.7, MCH 29.6, MCHC 30.6 L, RDW 13.1, Plt Count 354, MPV 8.4, Neut % (Auto) 83.4 H, Lymph % (Auto) 8.2 L, [place] % (Auto) 6.8, Eos % (Auto) 1.5, Baso % (Auto) 0.3, Neut # (Auto) 7.0, Lymph # (Auto) 0.7, [place] # (Auto) 0.6, Eos # (Auto) 0.1, Baso # (Auto) 0.0, PT 13.7 H, INR 1.29 H, APTT 35.6 H, Sodium 137, Potassium 4.3, Chloride 97 L, Carbon Dioxide 33 H, Anion Gap 11.3, BUN 18 H, Creatinine 0.70, Estimated Creat Clear 28, Estimated GFR 80, Est GFR ( Amer) 96, Glucose 98, Calcium 9.2, Magnesium 1.7, Total Bilirubin 0.9, AST 39 H, ALT 20, Alkaline Phosphatase 87, Trop
--- NOTE | 2023-03-01 11:04 | PC.NURSE ---
walked 25 feet ox dropped to 88 returned to bed put oxygen at 1 and returned to 91
--- NOTE | 2023-03-01 11:24 | CARE MANAGER ---
Patient's room air at rest was 90%. Patient ambulated and oxygen dropped to 88% on room air. After walking, 1 LPM/NC of Oxygen was applied and patient improved to 91%.
--- NOTE | 2023-03-01 11:40 | HMH.PHAINT1 ---
Pharmacy Intervention Comments: DISCHARGE MEDICATION COUNSELING PROVIDED. DISCUSSED CHANGE ON THE LASIX FROM 20 MG DAILY TO 40 MG DAILY. DISCUSSED THAT IF PATIENT STILL HAS 20 MG TABS REMAINING AT HOME SHE CAN TAKE 2 OF THOSE TO EQUAL 40 MG UNTIL USED UP. PATIENT STATES SHE THINKS SHE STILL HAS SOME 40 MG TABLETS FROM PREVIOUS USE. COUNSELED OVER LEVAQUIN (ANTIBIOTIC, TAKE ONE TABLET EVERY 2 DAYS, START TOMORROW, TAKE WITH FOOD, MAY CAUSE N/V/D). PATIENT VERBALIZED NO QUESTIONS AT THIS TIME.
--- NOTE | 2023-03-01 11:49 | CARE MANAGER ---
Patient is going to require Oxygen at home and chose [facility] for a provider. Information sent and call made to them. Patient states she already has home health with [facility]. Faxed new order and discharge summary to them. KYRA Aranda
--- NOTE | 2023-03-01 11:59 | PC.NURSE ---
pt awaiting 2 to be delivered before discharge.
--- NOTE | 2023-03-01 13:51 | PC.NURSE ---
[facility] called and message left regarding pt needing to be discharged home on oxygen.
--- NOTE | 2023-03-01 13:53 | PC.NURSE ---
Spoke with Artur De Guzman regarding pt needing oxygen.
--- NOTE | 2023-03-02 10:41 | CARE MANAGER ---
Called and spoke with patient regarding recent discharge. Patient stated that she is doing ok, just tired. She has scheduled her f/u appt with Dr. Coelho and has an appt with Dr. Cantrell today (scheduled prior to admission). Family is picking up medication prescribed at discharge from pharmacy today. No complaints or concerns at time of call.
== END 2023-03-01 15:39 | disposition home health service (06) ==
LOC: ER 11:36 → 2ND 12:20
PROVIDERS: Admitting Provider Internal Medicine Adolescent Medicine; Emergency Provider Student in an Organized Health Care Education/Training Program; PCP Internal Medicine; Visit Provider Internal Medicine Adolescent Medicine
DX: J96.01 Acute respiratory failure with hypoxia; J18.9 Pneumonia, unspecified organism; I50.33 Acute on chronic diastolic (congestive) heart failure; J90 Pleural effusion, not elsewhere classified; G40.909 Epilepsy, unspecified, not intractable, without status epilepticus; I48.20 Chronic atrial fibrillation, unspecified; J43.9 Emphysema, unspecified; I07.1 Rheumatic tricuspid insufficiency; I34.0 Nonrheumatic mitral (valve) insufficiency; Z79.899 Other long term (current) drug therapy; Z79.01 Long term (current) use of anticoagulants
CPT/HCPCS: G0378; 36415; 71045; 80053; 83735; 83880; 84484; 85025; 85610; 85730; 87636; 93005; 99285; J1956

== ENCOUNTER → 2023-03-16 17:33 | Outpatient (CLI) | payer MEDICARE, SELFPAY ==
[2023-03-16 20:31] LABS: Anion Gap 9.7 mEq/L (5-15); Blood Urea Nitrogen 32 mg/dl (7-17); Calcium 9.5 mg/dl (8.4-10.2); Carbon Dioxide 36 mmol/L (22.0-30.0); Chloride 97 mmol/L (98-107); Estimated Glomerular Filt Rate 60 ml/min (>60); GFR (African American) 72 ML/MIN (>60); Glucose 79 mg/dl (74-100); Potassium 4.7 mmoL/L (3.5-5.1); Sodium 138 mmol/L (136-145)
== END ==
PROVIDERS: PCP Internal Medicine; Visit Provider Internal Medicine
DX: R60.0 Localized edema (principal); L97.921 Non-pressure chronic ulcer of unspecified part of left lower leg limited to breakdown of skin; I87.2 Venous insufficiency (chronic) (peripheral)
CPT/HCPCS: 80048

== ENCOUNTER → 2023-03-24 14:51 | Outpatient (CLI) | payer MEDICARE, SELFPAY ==
--- NOTE | 2023-03-24 14:55 | CT_ITS ---
FINAL REPORT TECHNIQUE: axial CT without IV contrast administration. CLINICAL HISTORY: 6-month follow-up abnormal chest XR, former smoker. COMPARISON: 07/30/2022 FINDINGS: There are new patchy ground glass opacities in the upper lobes bilaterally, suspicious for mild bronchopneumonia. There are fibrotic changes in the lingula and right middle lobe that are unchanged, and may represent the sequela of remote aspiration. The previously noted right upper lobe nodular density measuring 14 x 8 mm on the prior exam is now 14 x 7 mm, essentially unchanged. The previously noted right lower lobe adjacent nodule is no longer seen. There is an anterior right lower lobe nodule seen in image #62 measuring 9 mm which is also unchanged. Changes of emphysema remain present. There are new small to moderate pleural effusions present bilaterally. No adenopathy or mass lesion is present. IMPRESSION: Improved right upper lobe nodularity since the prior CT. Stable right lung base nodule. New bilateral small to moderate pleural effusions. Patchy ground glass opacities in the upper lobes, likely pneumonia. Reviewed, Interpreted and Dictated by Juan Miguel Mann MD Transcribed by Katelynn Duran Authenticated and [facility]
== END ==
PROVIDERS: PCP Internal Medicine; Visit Provider Internal Medicine Pulmonary Disease
DX: R91.8 Other nonspecific abnormal finding of lung field (principal)
CPT/HCPCS: 71250

== ENCOUNTER → 2023-05-20 17:09 | Outpatient (CLI) | payer MEDICARE, SELFPAY ==
[2023-05-20 17:58] LABS: Anion Gap 9.4 mEq/L (5-15); Blood Urea Nitrogen 26 mg/dl (7-17); Calcium 9.5 mg/dl (8.4-10.2); Carbon Dioxide 37 mmol/L (22.0-30.0); Chloride 96 mmol/L (98-107); Estimated Glomerular Filt Rate 68 ml/min (>60); GFR (African American) 83 ML/MIN (>60); Glucose 78 mg/dl (74-100); Potassium 4.4 mmoL/L (3.5-5.1); Sodium 138 mmol/L (136-145)
== END ==
PROVIDERS: PCP Internal Medicine; Visit Provider Internal Medicine
DX: J18.9 Pneumonia, unspecified organism (principal); I50.9 Heart failure, unspecified; I36.1 Nonrheumatic tricuspid (valve) insufficiency; I34.0 Nonrheumatic mitral (valve) insufficiency; I87.2 Venous insufficiency (chronic) (peripheral); J44.9 Chronic obstructive pulmonary disease, unspecified; Z87.891 Personal history of nicotine dependence
CPT/HCPCS: 80048

== ENCOUNTER 2023-10-28 17:54 | Outpatient (CLI) | payer MEDICARE, SELFPAY ==
[2023-10-28 19:10] LABS: Basophils % 0.4 % (0.1-2.0); Eosinophils # 0.1 K/mm3 (0.0-0.4); Eosinophils % 1.6 % (0.1-12.0); Hematocrit 41.1 % (37.0-47.0); Hemoglobin 12.6 g/dL (12.2-16.2); Lymphocytes # 1.7 K/mm3 (0.7-4.5); Lymphocytes % 22.5 % (10-50); Mean Corpuscular HGB Conc 30.8 g/dL (31.8-35.4); Mean Corpuscular Hemoglobin 31.8 pg (27.0-31.2); Mean Corpuscular Volume 103.3 fl (81-99); Mean Platelet Volume 9.7 fl (7.4-10.4); Monocytes # 0.5 K/mm3 (0.1-1.0); Monocytes % 6.5 % (1.7-9.3); Neutrophils % 68.9 % (37.0-80.0); Platelet Count 244 K/mm3 (142-424); Red Blood Count 3.98 M/mm3 (4.20-5.40); Red Cell Distribution Width 13.5 % (11.5-17.5); White Blood Count 7.3 K/mm3 (4.8-10.8)
[2023-10-28 19:29] LABS: Anion Gap 10.9 mEq/L (5-15); Blood Urea Nitrogen 19 mg/dl (7-17); Calcium 9.4 mg/dl (8.4-10.2); Carbon Dioxide 30 mmol/L (22.0-30.0); Chloride 102 mmol/L (98-107); Estimated Glomerular Filt Rate 60 ml/min (>60); GFR (African American) 72 ML/MIN (>60); Glucose 77 mg/dl (74-100); Potassium 4.9 mmoL/L (3.5-5.1); Sodium 138 mmol/L (136-145)
[2023-10-31 18:00] LABS: Vitamin B12 851 pg/mL (239-931)
[2023-10-31 18:02] LABS: Folate > 20.00 ng/mL
== END 2023-10-28 23:59 ==
LOC: LAB.DROPOF 17:55
PROVIDERS: PCP Internal Medicine; Visit Provider Internal Medicine
DX: I10 Essential (primary) hypertension (principal); I87.2 Venous insufficiency (chronic) (peripheral); I50.9 Heart failure, unspecified; I34.0 Nonrheumatic mitral (valve) insufficiency; G40.909 Epilepsy, unspecified, not intractable, without status epilepticus; M81.0 Age-related osteoporosis without current pathological fracture; M15.0 Primary generalized (osteo)arthritis
CPT/HCPCS: 80048; 82607; 82746; 85025

== ENCOUNTER 2024-03-25 14:05 | Emergency (ER) | payer MEDICARE, SELFPAY ==
[2024-03-25 14:43] VITALS: BP 125/67; PULSE 67; RESP 14; TEMP 36.6; O2SAT 97; BMI 15.7
[2024-03-25 14:47] LABS: Apearance,Urine Cloudy (Clear); Color,Urine Dark Yellow (Yellow); Specific Gravity, Urine 1.025 (1.005-1.030)
[2024-03-25 14:48] LABS: Bilirubin,Urine Negative (Negative); Blood, Urine 3+ (Negative); Glucose,Urine (UA) Negative (Negative); Ketones,Urine Negative (Negative); Protein,Urine 1+ (Negative); UTC Leukocyte Esterase,Urine 3+ (Negative); UTC Nitrate,Urine Positive (Negative); Urobilinogen,Urine 0.2 EU/dl (0.2)
--- NOTE | 2024-03-25 15:02 | ED_ITS ---
Discharge Plan Disposition Patient Disposition: Home, Self-Care Condition: Good Prescriptions Prescriptions: New phenazopyridine [Pyridium] 200 mg tablet 200 mg PO Q8H 2 Days Qty: 6 0RF nitrofurantoin monohyd/m-cryst [Macrobid] 100 mg Capsule 100 mg PO BID Qty: 10 0RF Rx Instructions: must administer with a meal/food ondansetron 4 mg Tablet,Disintegrating 4 mg PO Q8H PRN (Reason: Nausea) Qty: 8 0RF No Action escitalopram oxalate 5 mg tablet 5 mg PO DAILY Eliquis 2.5 mg tablet See Rx Instructions .ROUTE .COMPLEX Qty: 180 3RF Dose Instruction: TAKE 1 TABLET BY MOUTH TWICE DAILY Rx Instructions: TAKE 1 TABLET BY MOUTH TWICE DAILY digoxin 125 mcg (0.125 mg) tablet 0.125 mg PO DAILY Qty: 90 3RF furosemide 20 mg tablet 10 mg PO DAILY Qty: 30 4RF glyc-Na lact/phos/biphos-potCl Liquid 10 ea miscellaneous DAILY Rx Instructions: 10 jay daily mixed with liquid fluticasone propionate [Flonase Allergy Relief] 50 mcg/actuation spray,suspension 1 spray intranasal BID 90 Days Qty: 16 2RF Rx Instructions: administer into each nostril albuterol sulfate 90 mcg/actuation HFA aerosol inhaler 2 puff inhalation Q6H PRN (Reason: shortness of breath or wheezing) 90 Days Qty: 8.5 3RF metoprolol succinate 100 mg tablet extended release 24 hr See Rx Instructions .ROUTE .COMPLEX Qty: 180 2RF Dose Instruction: TAKE ONE TABLET BY MOUTH TWICE A DAY Rx Instructions: TAKE ONE TABLET BY MOUTH TWICE A DAY Stiolto Respimat 2.5-2.5 mcg/actuation mist See Rx Instructions .ROUTE .COMPLEX Qty: 4 1RF Dose Instruction: 2 PUFFS INHALED BY MOUTH DAILY Rx Instructions: 2 PUFFS INHALED BY MOUTH DAILY potassium chloride 20 mEq/15 mL liquid 20 meq PO DAILY Qty: 450 5RF levetiracetam 500 MG tablet 500 mg PO BID ibandronate 150 MG tablet 150 mg PO MONTHLY Referrals Follow up/Referrals: Best Coelho MD [Primary Care Provider] - See instructions Activity Restrictions/Add. Instructions Additional Instructions/Restrictions: Drink plenty of fluids. Take tylenol or ibuprofen for pain or fever. Take the medications as directed. Follow up with your regular doctor. GO TO THE ER FOR ANY WORSENING SYMPTOMS The pyridium will make your urine turn orange, this is an expected side effect. It will stain your clothes if it comes into contact with them. We will culture the urine. That will tell what bacteria is causing your infection and which antibiotics will treat it best. Sometimes the first a ntibiotic we prescribe turns out to not work against different bacteria. So, make sure you follow up within 3 days if you are not getting better. Clinical Impressions Clinical Impression: UTI (urinary tract infection) Instructions Patient Instructions: Urinary Tract Infection, Urine Culture, DI for Urinary Tract Infection (UTI), Phenazopyridine, Nitrofurantoin Print Language Print Language: Greenlandic Discharge ED Provider: Janes Jacobsen [facility] General Stated complaint: pain in urination Mode of Arrival: Ambulatory Source of Information: Patient Limitations: No Limitations Time Seen by Provider: 03/25/24 15:02 Description of Symptoms (Recalled from Triage Doc. by RN): pt c/o burning with urination x3d HEENT Symptoms (Recalled from RN notes): No Resp Symptoms (Recalled from RN notes): No Skin Symptoms (Recalled from RN notes): No MS Symptoms (Recalled from RN notes): No Functional Status (Recalled from RN notes): wnl History of Present Illness Provider Complaint: She states that since yesterday she has had dysuria and urinary frequency. Related Data Home Medications ?Medication ?Instructions ?Recorded ?Confirmed ibandronate 150 mg tablet 150 mg PO MONTHLY osteopenia 06/06/18 02/03/24 levetiracetam 500 mg tablet 500 mg PO BID seizures 06/06/18 02/03/24 escitalopram oxalate 5 mg tablet 5 mg PO DAILY MOOD 01/11/23 02/03/24 glyc-sod 10 ea miscellaneous DAILY 10/13/23 02/03/24 zssjeyl-rskz-ghomed-potasium Cl liquid Previous Rx's ?Medication ?Instructions ?Recorded apixaban 2.5 mg tablet (Eliquis) See Rx Instructions .Route 09/01/23 .COMPLEX #180 tabs digoxin 125 mcg (0.125 mg) tablet 0.125 mg PO DAILY heart rate #90 09/01/23 tabs albuterol sulfate 90 mcg/actuation 2 puff inhalation Q6H PRN 10/13/23 aerosol inhaler shortness of breath or wheezing 90 days #8.5 grams fluticasone propionate 50 1 spray intranasal BID 90 days #16 10/13/23 mcg/actuation nasal grams spray,suspension (Flonase Allergy Relief) metoprolol succinate 100 mg See Rx Instructions .Route 10/14/23 tablet,extended release 24 hr .COMPLEX #180 tabs tiotropium 2.5 mcg-olodaterol 2.5 See Rx Instructions .Route 02/17/24 mcg/actuation mist for inhalation .COMPLEX #4 grams (Stiolto Respimat) potassium chloride 20 mEq/15 mL 20 meq (15 mL) PO DAILY #450 mL 03/04/24 oral liquid furosemide 20 mg tablet 10 mg (1/2 x 20 mg) PO DAILY #30 03/05/24 tabs nitrofurantoin 100 mg PO BID #10 caps 03/25/24 monohydrate/macrocrystals 100 mg capsule (Macrobid) ondansetron 4 mg disintegrating 4 mg PO Q8H PRN Nausea #8 tabs 03/25/24 tablet phenazopyridine 200 mg tablet 200 mg PO Q8H 2 days #6 tabs 03/25/24 (Pyridium) Allergies Allergy/AdvReac Type Severity Reaction Status Date / Time cephalexin [From Keflex] Allergy Verified 03/25/24 14:45 Worker's Comp Is this a Worker's Comp case?: No [facility] Disclaimer: The information contained in this section may have been updated after the patient was seen, as this information can be updated by other users. Medical History CHF with right heart failure Persistent atrial fibrillation Acute congestive heart failure Gastritis and duodenitis Atypical pneumonia Abnormal computerized axial tomography of chest Pulmonary emphysema History of smoking 30 or more pack years Smoking greater than 30 pack years Pleural scarring Lung nodule Dyspnea on exertion Abnormal EKG Bradycardia Moderate mitral regurgitation Tricuspid regurgitation [facility] current use of anticoagulant therapy Edema HTN (hypertension) Surgical History History of back surgery History of hysterectomy Family History Other Cancer Social History Smoking Status: Former smoker tobacco type: cigarettes packs per day: 1 second hand exposure: No alcohol intake: never substance use type: denies use current occupational status: retired Travel in the last 8 weeks: None housing: house current occupational exposures/hazards: No ROS Obtained: Yes All systems reviewed & no additional complaints except as documented Constitutional Constitutional: Reports system reviewed and no additional complaints, except as documented, Denies chills and Denies fever(s) Eyes Eyes: Denies eye discharge ENT Ears, Nose, Mouth, and Throat: Denies dysphagia, Denies sore throat and Denies throat swelling Cardiovascular Cardiovascular: Denies chest pain and Denies dyspnea Respiratory Respiratory: Denies chest congestion, Denies cough and Denies dyspnea Gastrointestinal Gastrointestingal: Denies abdominal pain, constipation, diarrhea, dysphagia, nausea or vomiting Genitourinary Female Genitourinary: Reports as per HPI, Reports dysuria, Reports urinary frequency, Denies urinary incontinence, Reports urinary hesitancy and Reports urinary urgency Musculoskeletal Musculoskeletal: Denies arthralgias and Reports back pain Integumentary/Breasts Skin/Breast: Denies rash Neurologic Neurologic: Denies paresthesias Allergic/Immunologic Allergic/Immunologic: Denies throat swelling Physical Exam General General appearance: alert and in no apparent distress Head Head exam: atraumatic and normocephalic Eye Eye exam: Present normal appearance, PERRL and EOMI ENT ENT exam: Present normal exam, mucous membranes moist, TM's normal bilaterally and normal external ear exam Neck Neck exam: Present normal inspection, full ROM and trachea midline; Absent tenderness, meningismus or lymphadenopathy Chest Chest inspection: Present normal inspection and symmetric chest wall rise; Absent tenderness Respiratory Respiratory exam: Present normal lung sounds bilaterally; Absent respiratory distress, wheezes or stridor Cardiovascular Cardiovascular exam: Present regular rate, normal rhythm and normal heart sounds Abdominal Exam Abdominal exam: Present soft and normal bowel sounds; Absent distention, tenderness, guarding, rebound, rigidity, incision, psoas sign, obturator sign, heel tap sign, Silveira's sign, Rovsing's sign or tenderness at McBurney's Point Extremities Exam Extremities exam: Present normal inspection, full ROM and normal capillary refill; Absent tenderness, edema, joint swelling, calf tenderness or cyanosis Back Exam Back exam: Present normal inspection and full ROM; Absent tenderness, CVA tenderness (R) or CVA tenderness (L) Neurological Exam Neurological exam: Present alert, oriented X3 and normal gait Psychiatric Psychiatric exam: Present normal affect and normal mood Skin Skin exam: Present warm, dry, intact and normal color Lymphatic Lymphatic Findings: no adenopathy Medical Decision Making Medical Records Medical records reviewed: No I reviewed the patient's medical records. Mark Inquiry Pt receiving controlled substance: No Vital Signs: 03/25/24 14:43 Temperature 97.9 F Temperature Source Oral Pulse Rate [Left] 67 Respiratory Rate 14 Blood Pressure [Right Arm] 125/67 Blood Pressure Mean [Right Arm] 86 Blood Pressure Source [Right Arm] Automatic Cuff Blood Pressure Position [Right Arm] Sitting 02 Sat by Pulse Oximetry 97 Oxygen Delivery Method Room Air Lab Data Lab results reviewed: Yes I reviewed the patient's lab results. Lab Results 03/25/24 14:46: Urine Color Dark yellow, Urine Appearance Cloudy, Urine pH 6.0, Ur Specific [place] 1.025, Urine Protein 1+, Urine Glucose (UA) Negative, Urine Ketones Negative, Urine Blood 3+, Urine Nitrate Positive A, Urine Bilirubin Negative, Urine Urobilinogen 0.2, Ur Leukocyte Esterase 3+ A Orders (Tests/Meds): ORDERS Category Date Time Status Urine Culture Stat Micro 03/25/24 14:46 Received
[2024-03-25 15:27] VITALS: BP 125/67; PULSE 67; RESP 14; TEMP 36.6
--- NOTE | 2024-03-27 08:57 | PC.NURSE ---
REVIEWED URINE CULTURE RESULTS WITH Maurice CORDOVA APRN. CURRENT ANTIBIOTIC CHANGED TO CIRPO AND SENT IN TO PHARMACY PER Maurice CORDOVA APRN. ATTEMPTED TO NOTIFY PATIENT, NO ANSWER AND VOICE MAIL LEFT TO RETURN CALL.
--- NOTE | 2024-03-27 13:52 | PC.NURSE ---
TRIED CONTACTING PATIENT REGARDING CHANGE OF ANTIBIOTIC WITH NO ANSWER. CONTACTED PATIENT'S DAUGHTER AND LEFT A MESSAGE WITH HER TO HAVE PATIENT CALL [facility].
--- NOTE | 2024-03-27 14:14 | PC.NURSE ---
SPOKE WITH PATIENT AND HER DAUGHTER AT THIS TIME. NOTIFIED PATIENT AND DAUGHTER OF URINE CULTURE RESULTS AND NEED TO CHANGE CURRENT ANTIBIOTIC. ADVISED PATIENT TO STOP CURRENT ANTIBIOTIC AND START TAKING NEW ONE AND TO FOLLOW UP WITH PCP. PATIENT AND DAUGHTER VERBALIZED UNDERSTANDING
== END 2024-03-25 15:27 | disposition home or self-care (01) ==
PROVIDERS: Emergency Provider Nurse Practitioner Family; PCP Internal Medicine
DX: N39.0 Urinary tract infection, site not specified; B96.4 Proteus (mirabilis) (morganii) as the cause of diseases classified elsewhere; R30.0 Dysuria; R35.0 Frequency of micturition
CPT/HCPCS: 81003; 87086; 87088; 87186; 99212; 99214; G0463

== ENCOUNTER 2024-03-28 14:36 | Outpatient (CLI) | payer MEDICARE, SELFPAY ==
--- NOTE | 2024-03-28 14:46 | CT_ITS ---
FINAL REPORT TECHNIQUE: Axial images were obtained from the lung apex to the mid abdomen by computed tomography. Coronal reformatted images were obtained. This study was performed with techniques to keep radiation doses as low as reasonably achievable, (ALARA). Individualized dose reduction techniques using automated exposure control or adjustment of mA and/or kV according to the patient''s size were employed. CLINICAL HISTORY: nodules COMPARISON: 03/24/2023 FINDINGS: The heart size is normal. There is no pericardial effusion. There are large right and small left pleural effusions. The right pleural effusion has increased compared to the prior study. There is coarse pleural-parenchymal scarring at the lung apices. The previously questioned density in the right upper lobe is less evident and appears more linear on today's exam. This is favored to be postinflammatory and is best seen on images [id number] series 3. The previously noted nodule at the medial right middle lobe is unchanged and best seen on image 168 of series 3. Limited images of the upper abdomen are unremarkable. IMPRESSION: Previously noted right upper lobe density favored to be postinflammatory. Unchanged medial right middle lobe nodule. Reviewed, Interpreted and Dictated by Casa Norris MD Transcribed by Bonita Portillo Authenticated and [facility]
== END 2024-03-28 23:59 | disposition home or self-care (01) ==
LOC: RT 14:39
PROVIDERS: PCP Internal Medicine; Visit Provider Internal Medicine Pulmonary Disease
DX: R91.8 Other nonspecific abnormal finding of lung field (principal); R06.09 Other forms of dyspnea
CPT/HCPCS: 71250; 94618

== ENCOUNTER 2025-01-23 10:03 | Outpatient (CLI) | payer MEDICARE, SELFPAY ==
[2025-01-23] MEDS: ALBUTEROL 0.083% 2.5 MG/3 ML NEB IH (11:26)
--- NOTE | 2025-01-23 11:29 | PC.NURSE ---
PFT AND 6 MINUTE WALK TEST COMPLETED ON PT WITHOUT INCIDENT.
== END 2025-01-23 23:59 | disposition home or self-care (01) ==
PROVIDERS: PCP Internal Medicine; Visit Provider Internal Medicine Pulmonary Disease
DX: R06.09 Other forms of dyspnea (principal); R06.02 Shortness of breath
CPT/HCPCS: 94060; 94618